=== PATIENT | female | born 1980 | race African-American/Black ===

== ENCOUNTER → 2016-08-29 | Outpatient (REF) | payer OTHER | LOC: M LAB REF 12:26 | PROVIDERS: ATTEND Internal Medicine Medical Oncology | DX: I81 Portal vein thrombosis (principal) ==

== ENCOUNTER → 2016-09-01 | Outpatient (CLI) | payer OTHER ==
--- NOTE | 2016-09-01 16:44 | REP ---
MRI study of the abdomen without and with IV gadolinium: History: History of portal vein thrombosis. Reassessment. Comparison MRI study 01/06/2015. Comparison CT examination 12/22/2014. Technique: Axial and coronal imaging planes utilized. T1 and T2-weighted scans include spin echo, turbo spin-echo, in and out of phase, and dynamically acquired sequential post gadolinium enhanced 2-D T1-weighted fat sat gradient echo images. Gadolinium enhancement dose is 22 ml of intravenous ProHance. MRI findings: No focal hepatic or splenic lesion is seen. There is no evidence of ascites. There is no evidence of hydronephrosis or renal mass or cyst on either side. No pancreatic lesion is seen. 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 No [place] portal vein is seen along the dorsal surface of the pancreas as before. The [place] portal vein cannot be resolved. I do not see a recannulated umbilical vein. In and out of phase images show no focal liver lesion. No gallbladder abnormality is seen. Dynamically acquired post gadolinium enhanced images show blood pool phase enhancement of the tangle of recannulated vessels in the jaswant apparatus. Postcontrast images show what appears to be a small 7 mm nonenhancing well-circumscribed lesion in the left lobe of the liver consistent with a cyst. This is unchanged from the 2014 prior study. There are some venous collaterals in the left mid abdomen at the inferior spleen tip to an adjacent to the left colon. These are also unchanged. 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 The [place] portal vein and [place] splenic vein cannot be seen. There are some venous collaterals in the left upper quadrant. No evidence of ascites. No renal abnormality noted. Signed by Jose De Jesus Perez MD 09/01/2016 05:04 P
== END ==
LOC: M RAD 14:15
PROVIDERS: ATTEND Internal Medicine Medical Oncology
DX: Z86.718 Personal history of other venous thrombosis and embolism (principal)
CPT/HCPCS: 74183; A9576

== ENCOUNTER 2016-09-07 17:30 | Emergency (ER) | payer OTHER ==
[2016-09-07 19:10] LABS: BASO % 0.2 % (0.0-1.0); EOS # 0.1 K/mm3 (0.0-0.50); EOS % 1.4 % (0.0-3.0); LARGE UNSTAINED CELL # 0.1 K/mm3 (0.0-0.4); LARGE UNSTAINED CELL % 1.1 % (0.0-4.0); LYMPH # 0.6 K/mm3 (1.5-4.5); LYMPH % 9.7 % (24.0-44.0); MEAN CORPUSCULAR HEMOGLOBIN 30.1 pg (27.0-33.0); MEAN CORPUSCULAR HGB CONC 32.4 g/dl (32.0-36.5); MONO # 0.2 K/mm3 (0.0-0.8); NEUTROPHILS # 4.7 K/mm3 (1.8-7.7); NEUTROPHILS % 84.6 % (36.0-66.0); PLATELET COUNT, AUTOMATED 186 k/mm3 (150-450); RED CELL DISTRIBUTION WIDTH 16.2 % (11.5-14.5); WHITE BLOOD COUNT 5.6 K/mm3 (4.0-10.0)
[2016-09-07] MEDS ORDERED: MORPHINE 4 MG/ML 1ML SYRINGE As Ordered ONE (19:28)
[2016-09-07] MEDS ORDERED: METOCLOPRAMIDE INJ 10MG/2ML VIAL (J2765) As Ordered ONE (19:28)
[2016-09-07 20:06] LABS: INR 0.96
[2016-09-07 20:19] LABS: ALBUMIN 3.6 GM/DL (3.2-5.2); ALBUMIN/GLOBULIN RATIO 0.78 (1.00-1.93); ALKALINE PHOSPHATASE 48 U/L (45-117); ALT/SGPT 20 U/L (12-78); AMYLASE 123 U/L (25-115); ANION GAP 9 MEQ/L (8-16); AST/SGOT 17 U/L (15-37); BILIRUBIN,DIRECT 0.1 MG/DL (0.0-0.2); BILIRUBIN,TOTAL 0.4 MG/DL (0.2-1.0); BLOOD UREA NITROGEN 12 MG/DL (7-18); CALCIUM LEVEL 8.6 MG/DL (8.5-10.1); CARBON DIOXIDE LEVEL 25 MEQ/L (21-32); CHLORIDE LEVEL 107 MEQ/L (98-107); CREATININE FOR GFR 0.87 MG/DL (0.55-1.02); GLOMERULAR FILTRATION RATE > 60.0 (>60); GLUCOSE, FASTING 84 MG/DL (70-105); SODIUM LEVEL 141 MEQ/L (136-145); TOTAL PROTEIN 8.2 GM/DL (6.4-8.2)
--- NOTE | 2016-09-07 21:38 | EDDOCDS ---
Physician Documentation [facility] Name: Rona Bah Age: 35 yrs Sex: Female : 1980 Arrival Date: 09/07/2016 Time: 17:30 Bed I5 / M5 Private MD: YU Calhoun Disposition: 09/07/16 21:21 Discharged to Home/Self Care. Impression: Nausea - likely viral illness, Diarrhea, unspecified. - Condition is Stable. - Discharge Instructions: Diarrhea, Nausea, Adult. - Prescriptions for ZOFRAN ODT 4 mg Oral - dissolve 1 tablet by ORAL route every 8 hours As needed do not chew, do not swallow whole; 10 tablet. - Medication Reconciliation, Local Pharmacy Hours form. - Follow up: YU Calhoun; When: Call to arrange an appointment; Reason: Recheck today's complaints. Follow up: Emergency Department; When: As needed; Reason: Fever > 102F, Worsening of conditions. - Problem is new. - Symptoms have improved. Historical: - Allergies: states in 2012 she had a "reaction" to dilaudid and oxycodone, but since has taken percocet without any problems; - Home Meds: 1. Iron CR 250 mg Oral cpER daily 2. multivitamin Oral cap daily 3. vit B12 monthly 4. vit d gummy daily 5. Xarelto 20 mg oral tab once daily - PMHx: blood clot to her liver; blood clot to right arm; left hip arhtritis; PE; Sleep Apnea w/o CPAP; - PSHx: gastric sleeve 2012; - Social history: Smoking status: Patient states was never smoker of tobacco. Patient uses marijuana, last used yesterday, No barriers to communication noted. - Family history: No immediate family members are acutely ill. - : The pt / caregiver states he / she is on anticoagulants: Xarelto Home medication list is obtained from the patient. - Exposure Risk Screening:: None identified. 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 0 in. (182.88 cm) (R); Pain 10/10; 20:00 Pain 6/10; dsf 20:12 BP 100 / 52; Pulse 54; Resp 18; Temp 99.7; Pulse Ox 100% ; Pain 6/10; ajs 21:26 BP 110 / 69; Pulse 60; Resp 18; Temp 99.5; Pulse Ox 98% ; Pain 4/10; ajs 17:33 Body Mass Index 31.19 (104.33 kg, 182.88 cm) gr2 MDM: 18:22 IV Saline Lock ordered. ar2 18:22 Undress patient appropriately for examination ordered. ar2 18:22 NS 0.9% 1000 ml IV at bolus once ordered. ar2 18:22 UCG by Nursing ordered. ar2 18:23 Amylase Ordered. EDMS 18:23 Basic Metabolic Profile Ordered. EDMS 18:23 CBC with Diff Ordered. EDMS 18:23 Lipase Ordered. EDMS 18:23 Liver Profile Ordered. EDMS 18:23 UA Ordered. EDMS 18:23 Pt & Aptt Ordered. EDMS 18:23 Lactic Acid (Arriaga tube on ice) Ordered. EDMS 18:24 NOTHING BY MOUTH+DIET ordered. EDMS 19:17 morphine 4 mg IVP once ordered. ar2 19:19 Metoclopramide 10 mg IV at 40 mg/hr once over 15 mins ordered. ar2 20:21 CBC with Diff Reviewed. ar2 20:21 UA Reviewed. ar2 20:21 Pt & Aptt Reviewed. ar2 20:21 Lactic Acid (Arriaga tube on ice) Reviewed. ar2 20:49 Amylase Reviewed. ar2 20:49 Liver Profile Reviewed. ar2 20:49 Basic Metabolic Profile Reviewed. ar2 20:49 Lipase Reviewed. ar2 20:55 Financial registration complete. gjb Point of Care Testing: Urine : 19:18 hCG Reading: Negative; Control Reading: Positive; ajs Ranges: Administered Medications: 19:15 Drug: NS 0.9% 1000 ml [sodium chloride 0.9 % injection solution] Route: IV; Rate: dsf bolus; Site: right wrist; 21:35 Follow up: IV Status: Completed infusion; IV Intake: 1000ml ld5 19:39 Drug: Metoclopramide 10 mg [metoclopramide 5 mg/mL injection solution] Route: IV; Rate: dsf 40 mg/hr; Infused Over: 15 mins; Site: right wrist; 20:10 Follow up: IV Status: Completed infusion; IV Intake: 10ml dsf 19:40 Drug: morphine 4 mg [morphine 4 mg/mL intravenous cartridge (1 mL)] Route: IVP; Site: dsf right wrist; 20:00 Follow up: Pain 01/20 Adult dsf Signatures: Dispatcher [employer] James Harrington PA-C PA-C ar2 Ana Paula Babcock RN RN ld5 Marcie Thorne RN RN allen Sol Lopez Desiree RN dsf [facility]
--- NOTE | 2016-09-07 21:38 | EDDOCDS ---
Nurse's Notes [facility] Name: Rona Bah Age: 35 yrs Sex: Female : 1980 Arrival Date: 09/07/2016 Time: 17:30 Bed I5 / M5 Private MD: YU Calhoun Diagnosis: Nausea-likely viral illness;Diarrhea, unspecified Presentation: 09/07 17:49 Presenting complaint: Patient states: dizzy and weak yesterday, woke up today with [facility] severe abdominal pain and pain into right flank and feeling like not wanting to move didn't even want to get up to use the bathroom. Acute neurological deficits are not present. Mechanism of Injury: No Mechanism of Injury. Adult Sepsis Screening: The patient does not have new or worsening altered mentation. Patient's respiratory rate is less than 22. Systolic blood pressure is greater than 100. Patient has a qSOFA score of 0- Negative Sepsis Screen. Suicide/Homicide risk assessment- the patient denies having any suicidal and/or homicidal ideations and does not present with any other emotional, behavioral or mental health complaints. Status: The patient is a dependent. Transition of care: patient was not received from another setting of care. 17:49 Acuity: JOSÉ MANUEL Level 3 [facility] 17:49 Method Of Arrival: Walkin/Carried/Asstd [facility] Triage Assessment: 17:51 General: Appears in no apparent distress, comfortable, Behavior is appropriate for age, [facility] cooperative. Pain: Location: back and abdomen Pain currently is 7 out of 10 on a pain scale. HIV screening NA for this visit Offered previously. GI: Reports diarrhea, nausea, Pain is 7 out of 10 on a pain scale. Musculoskeletal: Range of motion intact in all extremities. 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 Iron CR 250 mg Oral cpER daily 2. multivitamin Oral cap daily 3. vit B12 monthly 4. vit d gummy daily 5. Xarelto 20 mg oral tab once daily - PMHx: blood clot to her liver; blood clot to right arm; left hip arhtritis; PE; Sleep Apnea w/o CPAP; - PSHx: gastric sleeve 2013; - Social history: Smoking status: Patient states was never smoker of tobacco. Patient uses marijuana, last used yesterday, No barriers to communication noted. - Family history: No immediate family members are acutely ill. - : The pt / caregiver states he / she is on anticoagulants: Xarelto Home medication list is obtained from the patient. - Exposure Risk Screening:: None identified. Screenin:35 Screening information is obtained from the patient. Fall risk: No risks identified. ld5 Assistance ADL's: requires no assistance with activities of daily living. Abuse/DV Screen: The patient / caregiver reports he/she is: not in a situation that causes fear, pain or injury. Nutritional screening: No deficits noted. Advance Directives: There is no active DNR order. home support is adequate. Assessment: 18:51 General: Appears uncomfortable, Behavior is appropriate for age, cooperative. srm Neurological: No deficits noted. Respiratory: No deficits noted. GI: Reports cramping, lower abdominal pain. Derm: No deficits noted. 19:15 General: Appears in no apparent distress, uncomfortable, Behavior is appropriate for dsf age, cooperative. Pain: Location: right upper quadrant and left upper quadrant and back Pain currently is 7 out of 10 on a pain scale. Quality of pain is described as stabbing. Neurological: Level of Consciousness is awake, alert. Cardiovascular: Capillary refill < 3 seconds. Respiratory: Airway is patent Respiratory effort is even, unlabored, Respiratory pattern is regular, symmetrical. Derm: Skin is pink, warm & dry. 20:00 General: Appears in no apparent distress, Behavior is appropriate for age, cooperative. dsf Pain: Pain currently is 6 out of 10 on a pain scale. Neurological: Level of Consciousness is awake, alert. Cardiovascular: Capillary refill < 3 seconds. Respiratory: Airway is patent Respiratory effort is even, unlabored, Respiratory pattern is regular, symmetrical. Derm: Skin is pink, warm & dry. 20:48 General: Pt resting comfortably in bed. Fluids infusing. Will continue to monitor. ld5 21:35 General: Appears in no apparent distress, Behavior is cooperative, pleasant. General: ld5 Pt tolerated godfrey maricel well. Neurological: Level of Consciousness is awake, alert. Respiratory: Airway is patent Respiratory effort is even, unlabored. Vital Signs: 17:33 BP 122 / 56; Pulse 65; Resp 18 S; Temp 97.8(O); Pulse Ox 99% on R/A; Weight 104.33 kg gr2 (R); Height 6 ft. 0 in. (182.88 cm) (R); Pain 10/10; 20:00 Pain 6/10; dsf 20:12 BP 100 / 52; Pulse 54; Resp 18; Temp 99.7; Pulse Ox 100% ; Pain 6/10; ajs 21:26 BP 110 / 69; Pulse 60; Resp 18; Temp 99.5; Pulse Ox 98% ; Pain 4/10; ajs 17:33 Body Mass Index 31.19 (104.33 kg, 182.88 cm) gr2 Vitals: 17:33 Log In Time: September 07, 2016 at 17:33. gr2 ED Course: 17:32 Patient visited by Bay Hidalgo. gr2 17:32 [facility] [place] Private Physician. gr2 17:32 Patient moved to Waiting gr2 17:34 Patient visited by [place] H[place]go. gr2 17:34 Patient moved to Pre RCE gr2 17:51 Triage Initiated h 18:16 Patient moved to Triage 1 [facility] 18:17 James South PA-C is [facility]. ar2 18:17 Dawn Lynn MD is Attending Physician. ar2 18:17 Patient visited by James South PA-C. ar2 18:21 Patient moved to I5 / M5 [facility] 18:51 Missed attempts: 20 gauge in right wrist. srm 19:04 Inserted peripheral IV: 20gauge IV in right hand and blood collected. Patient tolerated ml6 the procedure well. Labs drawn. (by ED staff). Sent per order to lab. 19:16 Patient visited by Bea Enriquez,WENDY. dsf 19:18 Patient visited by Abeba Kerns. ajs 19:18 UA Sent. ajs 20:12 Patient visited by Abeba Kerns. ajs 20:33 Patient visited by Bea Enriquez,WENDY. dsf 20:49 Patient visited by Ana Paula Babcock,WENDY. ld5 21:21 [facility] [place]erral Physician. ar2 21:26 Patient visited by Abeba Kerns. ajs 21:35 The patient / caregiver is instructed regarding the plan of care and ED course. Patient ld5 has correct armband on for positive identification. 21:35 Discontinued lock intact, bleeding controlled, pressure dressing applied, No ld5 redness/swelling at site. No procedures done that require assistance. 21:37 Patient visited by Ana Paula Babcock RN. ld5 Administered Medications: 19:15 Drug: NS 0.9% 1000 ml [sodium chloride 0.9 % injection solution] Route: IV; Rate: dsf bolus; Site: right wrist; 21:35 Follow up: IV Status: Completed infusion; IV Intake: 1000ml ld5 19:39 Drug: Metoclopramide 10 mg [metoclopramide 5 mg/mL injection solution] Route: IV; Rate: dsf 40 mg/hr; Infused Over: 15 mins; Site: right wrist; 20:10 Follow up: IV Status: Completed infusion; IV Intake: 10ml dsf 19:40 Drug: morphine 4 mg [morphine 4 mg/mL intravenous cartridge (1 mL)] Route: IVP; Site: dsf right wrist; 20:00 Follow up: Pain 6/10 Adult dsf Point of Care Testing: Urine : 19:18 hCG Reading: Negative; Control Reading: Positive; ajs Ranges: Intake: 20:10 IV: 10.00ml; Total: 10.00ml. dsf 21:35 IV: 1000.00ml; Total: 1010.00ml. ld5 Order Results: Lab Order: Amylase; SPEC'M 09/07/16 19:47 Test: AMYLASE; Value: 123; Range: 25-115; Abnormal: Above high normal; Units: U/L; Status: F Lab Order: Basic Metabolic Profile; SPEC'M 09/07/16 19:47 Test: GLUCOSE, FASTING; Value: 84; Range: 70-105; Units: MG/DL; Status: F Test: BLOOD UREA NITROGEN; Value: 12; Range: 7-18; Units: MG/DL; Status: F Test: CREATININE FOR GFR; Value: 0.87; Range: 0.55-1.02; Units: MG/DL; Status: F Test: GLOMERULAR FILTRATION RATE; Value: > 60.0; Range: >60; Status: F Test: SODIUM LEVEL; Value: 141; Range: 136-145; Units: MEQ/L; Status: F Test: POTASSIUM SERUM; Value: 4.0; Range: 3.5-5.1; Units: MEQ/L; Status: F Test: CHLORIDE LEVEL; Value: 107; Range: 98-107; Units: MEQ/L; Status: F Test: CARBON DIOXIDE LEVEL; Value: 25; Range: 21-32; Units: MEQ/L; Status: F Test: ANION GAP; Value: 9; Range: 8-16; Units: MEQ/L; Status: F Test: CALCIUM LEVEL; Value: 8.6; Range: 8.5-10.1; Units: MG/DL; Status: F Test Note: ; Units are mL/min/1.73 m2 Chronic Kidney Disease Staging per NKF: Stage I & II GFR >=60 Normal to Mildly Decreased Stage III GFR 30-59 Moderately Decreased Stage IV GFR 15-29 Severely Decreased Stage V GFR <15 Very Little GFR Left ESRD GFR <15 on RUG SAMPLE BEVELER Lab Order: CBC with Diff; SPEC'M 09/07/16 19:01 Test: WHITE BLOOD COUNT; Value: 5.6; Range: 4.0-10.0; Units: K/mm3; Status: F Test: RED BLOOD COUNT; Value: 4.12; Range: 4.00-5.40; Units: M/mm3; Status: F Test: HEMOGLOBIN; Value: 12.4; Range: 12.0-16.0; Units: g/dl; Status: F Test: HEMATOCRIT; Value: 38.3; Range: 36.0-47.0; Units: %; Status: F Test: MEAN CORPUSCULAR VOLUME; Value: 93.0; Range: 80.0-96.0; Units: fl; Status: F Test: MEAN CORPUSCULAR HEMOGLOBIN; Value: 30.1; Range: 27.0-33.0; Units: pg; Status: F Test: MEAN CORPUSCULAR HGB CONC; Value: 32.4; Range: 32.0-36.5; Units: g/dl; Status: F Test: RED CELL DISTRIBUTION WIDTH; Value: 16.2; Range: 11.5-14.5; Abnormal: Above high normal; Units: %; Status: F Test: PLATELET COUNT, AUTOMATED; Value: 186; Range: 150-450; Units: k/mm3; Status: F Test: NEUTROPHILS %; Value: 84.6; Range: 36.0-66.0; Abnormal: Above high normal; Units: %; Status: F Test: LYMPH %; Value: 9.7; Range: 24.0-44.0; Abnormal: Below low normal; Units: %; Status: F Test: MONO %; Value: 3.0; Range: 0.0-5.0; Units: %; Status: F Test: EOS %; Value: 1.4; Range: 0.0-3.0; Units: %; Status: F Test: BASO %; Value: 0.2; Range: 0.0-1.0; Units: %; Status: F Test: LARGE UNSTAINED CELL %; Value: 1.1; Range: 0.0-4.0; Units: %; Status: F Test: NEUTROPHILS #; Value: 4.7; Range: 1.8-7.7; Units: K/mm3; Status: F Test: LYMPH #; Value: 0.6; Range: 1.5-4.5; Abnormal: Below low normal; Units: K/mm3; Status: F Test: MONO #; Value: 0.2; Range: 0.0-0.8; Units: K/mm3; Status: F Test: EOS #; Value: 0.1; Range: 0.0-0.50; Units: K/mm3; Status: F Test: BASO #; Value: 0.0; Range: 0.0-0.2; Units: K/mm3; Status: F Test: LARGE UNSTAINED CELL #; Value: 0.1; Range: 0.0-0.4; Units: K/mm3; Status: F Lab Order: Lipase; SPEC'M 09/07/16 19:47 Test: LIPASE; Value: 194; Range: 73-393; Units: U/L; Status: F Lab Order: Liver Profile; SPEC'M 09/07/16 19:47 Test: AST/SGOT; Value: 17; Range: 15-37; Units: U/L; Status: F Test: ALT/SGPT; Value: 20; Range: 12-78; Units: U/L; Status: F Test: ALKALINE PHOSPHATASE; Value: 48; Range: 45-117; Units: U/L; Status: F Test: BILIRUBIN,TOTAL; Value: 0.4; Range: 0.2-1.0; Units: MG/DL; Status: F Test: BILIRUBIN,DIRECT; Value: 0.1; Range: 0.0-0.2; Units: MG/DL; Status: F Test: TOTAL PROTEIN; Value: 8.2; Range: 6.4-8.2; Units: GM/DL; Status: F Test: ALBUMIN; Value: 3.6; Range: 3.2-5.2; Units: GM/DL; Status: F Test: ALBUMIN/GLOBULIN RATIO; Value: 0.78; Range: 1.00-1.93; Abnormal: Below low normal; Status: F Lab Order: UA; SPEC'M 09/07/16 19:12 Test: APPEARANCE, URINE; Value: CLEAR; Range: CLEAR; Status: F Test: COLOR, URINE; Value: YELLOW; Range: YELLOW; Status: F Test: PH,URINE; Value: 7.0; Range: 5.0-9.0; Units: UNITS; Status: F Test: SPECIFIC GRAVITY URINE AUTO; Value: 1.024; Range: 1.002-1.035; Status: F Test: PROTEIN, URINE AUTO; Value: NEGATIVE; Range: NEGATIVE; Units: mg/dL; Status: F Test: GLUCOSE, URINE (UA) AUTO; Value: NEGATIVE; Range: NEGATIVE; Units: mg/dL; Status: F Test: KETONE, URINE AUTO; Value: NEGATIVE; Range: NEGATIVE; Units: mg/dL; Status: F Test: UROBILINOGEN, URINE AUTO; Value: 0.2; Range: 0.0-2.0; Units: mg/dL; Status: F Test: BILIRUBIN, URINE AUTO; Value: NEGATIVE; Range: NEGATIVE; Status: F Test: NITRITE, URINE AUTO; Value: NEGATIVE; Range: NEGATIVE; Status: F Test: LEUKOCYTE ESTERASE, URINE AUTO; Value: NEGATIVE; Range: NEGATIVE; Status: F Test: BLOOD, URINE BLOOD; Value: NEGATIVE; Range: NEGATIVE; Status: F Test: WBC, URINE AUTO; Value: 0; Range: 0-3; Units: /HPF; Status: F Test: RBC, URINE AUTO; Value: 1; Range: 0-3; Units: /HPF; Status: F Test: BACTERIA, URINE AUTO; Value: NEGATIVE; Range: NEGATIVE; Status: F Test: SQUAMOUS EPITHELIAL CELL UR AU; Value: 0; Range: 0-6; Units: /HPF; Status: F Test: MUCUS, URINE; Value: SMALL; Range: NEGATIVE; Status: F Test: HYALINE CAST, URINE AUTO; Value: 0; Range: 0-1; Units: /LPF; Status: F Lab Order: Pt & Aptt; SPEC'M 09/07/16 19:47 Test: PROTHROMBIN TIME; Value: 12.9; Range: 12.3-14.5; Units: SECONDS; Status: F Test: INR; Value: 0.96; Status: F Test: PARTIAL THROMBOPLASTIN TIME; Value: 27.1; Range: 26.6-37.1; Units: SECONDS; Status: F Test Note: ; THERAPUTIC HUMAN INR VALUES INDICATIONS NORMAL RANGES PROPHYLAXIS/TREATMENT OF: VENOUS THROMBOSIS 2.0-3.0 PULMONARY EMBOLISM 2.0-3.0 PREVENTION OF SYSTEMIC EMBOLISM FROM: TISSUE HEART VALVES 2.0-3.0 ACUTE MYOCARDIAL INFARCTION 2.0-3.0 VALVULAR HEART DISEASE 2.0-3.0 ATRIAL FIBRILLATION 2.0-3.0 MECHANICAL VALVES(HIGH RISK) 2.5-3.5 RECURRENT MYOCARDIAL INFARCTION 2.5-3.5 Lab Order: Lactic Acid (Rariaga tube on ice); SPEC'M 09/07/16 19:01 Test: LACTIC ACID LEVEL, LACTATE; Value: 1.5; Range: 0.4-2.0; Units: MMOL/L; Status: F Outcome: 21:21 Discharge ordered by Provider. ar2 21:35 Discharge Assessment: Patient awake, alert and oriented x 3. No cognitive and/or ld5 functional deficits noted. Patient verbalized understanding of disposition instructions. patient administered narcotics - no. The following High Risk Discharge criteria are identified: None. Discharged to home ambulatory. Condition: stable. Discharge instructions given to patient, Instructed on discharge instructions, follow up and referral plans. medication usage, Demonstrated understanding of instructions, medications, Pt was receptive of discharge instructions/ teaching. Prescriptions given X 1. No special radiology studies were completed. Property :Personal belongings accompany Pt. 21:37 Patient left the ED. ld5 Signatures: Kimberli Jesus RN RN James Rogel PA-C PA-C ar2 Dedrick Washburn, RN RN ml6 Ana Paula Babcock,RN RN ld5 Bea Enriquez,RN RN ludinf Abeba Kerns JaneRN RN [facility] Bay Hidalgo 2 MTDFarhana
--- NOTE | 2016-09-09 22:38 | EDDOCDS ---
Physician Documentation [facility] Name: Rona Bah Age: 35 yrs Sex: Female : 1980 Arrival Date: 09/07/2016 Time: 17:30 Bed I5 / M5 Private MD: YU Calhoun Disposition: 09/07/16 21:21 Discharged to Home/Self Care. Impression: Nausea - likely viral illness, Diarrhea, unspecified. - Condition is Stable. - Discharge Instructions: Diarrhea, Nausea, Adult. - Prescriptions for ZOFRAN ODT 4 mg Oral - dissolve 1 tablet by ORAL route every 8 hours As needed do not chew, do not swallow whole; 10 tablet. - Medication Reconciliation, Local Pharmacy Hours form. - Follow up: YU Calhoun; When: Call to arrange an appointment; Reason: Recheck today's complaints. Follow up: Emergency Department; When: As needed; Reason: Fever > 102F, Worsening of conditions. - Problem is new. - Symptoms have improved. Historical: - Allergies: states in 2012 she had a "reaction" to dilaudid and oxycodone, but since has taken percocet without any problems; - Home Meds: 1. Iron CR 250 mg Oral cpER daily 2. multivitamin Oral cap daily 3. vit B12 monthly 4. vit d gummy daily 5. Xarelto 20 mg oral tab once daily - PMHx: blood clot to her liver; blood clot to right arm; left hip arhtritis; PE; Sleep Apnea w/o CPAP; - PSHx: gastric sleeve 2012; - Social history: Smoking status: Patient states was never smoker of tobacco. Patient uses marijuana, last used yesterday, No barriers to communication noted. - Family history: No immediate family members are acutely ill. - : The pt / caregiver states he / she is on anticoagulants: Xarelto Home medication list is obtained from the patient. - Exposure Risk Screening:: None identified. INFORMATION SYSTEMS CONSULTANT: 09/07 17:51 LMP 08/25/2016 [facility] Vital Signs: 17:33 BP 122 / 56; Pulse 65; Resp 18 S; Temp 97.8(O); Pulse Ox 99% on R/A; Weight 104.33 kg / gr2 230.01 lbs (R); Height 6 ft. 0 in. (182.88 cm) (R); Pain 10/10; 20:00 Pain 6/10; dsf 20:12 BP 100 / 52; Pulse 54; Resp 18; Temp 99.7; Pulse Ox 100% ; Pain 6/10; ajs 21:26 BP 110 / 69; Pulse 60; Resp 18; Temp 99.5; Pulse Ox 98% ; Pain 4/10; ajs 17:33 Body Mass Index 31.19 (104.33 kg, 182.88 cm) gr2 MDM: 18:22 IV Saline Lock ordered. ar2 18:22 Undress patient appropriately for examination ordered. ar2 18:22 NS 0.9% 1000 ml IV at bolus once ordered. ar2 18:22 UCG by Nursing ordered. ar2 18:23 Amylase Ordered. EDMS 18:23 Basic Metabolic Profile Ordered. EDMS 18:23 CBC with Diff Ordered. EDMS 18:23 Lipase Ordered. EDMS 18:23 Liver Profile Ordered. EDMS 18:23 UA Ordered. EDMS 18:23 Pt & Aptt Ordered. EDMS 18:23 Lactic Acid (Ariraga tube on ice) Ordered. EDMS 18:24 NOTHING BY MOUTH+DIET ordered. EDMS 19:17 morphine 4 mg IVP once ordered. ar2 19:19 Metoclopramide 10 mg IV at 40 mg/hr once over 15 mins ordered. ar2 20:21 CBC with Diff Reviewed. ar2 20:21 UA Reviewed. ar2 20:21 Pt & Aptt Reviewed. ar2 20:21 Lactic Acid (Arriaga tube on ice) Reviewed. ar2 20:49 Amylase Reviewed. ar2 20:49 Liver Profile Reviewed. ar2 20:49 Basic Metabolic Profile Reviewed. ar2 20:49 Lipase Reviewed. ar2 20:55 Financial registration complete. [facility] 21:57 [place] Payment Agreement was scanned into [employer] and attached to record. b 09/08 10:15 T-Sheet-- Draft Copy was scanned into [employer] and attached to record. Point of Care Testing: Urine : 09/07 19:18 hCG Reading: Negative; Control Reading: Positive; ajs Ranges: Administered Medications: 19:15 Drug: NS 0.9% 1000 ml [sodium chloride 0.9 % injection solution] Route: IV; Rate: dsf bolus; Site: right wrist; 21:35 Follow up: IV Status: Completed infusion; IV Intake: 1000ml ld5 19:39 Drug: Metoclopramide 10 mg [metoclopramide 5 mg/mL injection solution] Route: IV; Rate: dsf 40 mg/hr; Infused Over: 15 mins; Site: right wrist; 20:10 Follow up: IV Status: Completed infusion; IV Intake: 10ml dsf 19:40 Drug: morphine 4 mg [morphine 4 mg/mL intravenous cartridge (1 mL)] Route: IVP; Site: dsf right wrist; 20:00 Follow up: Pain 01/20 Adult dsf Signatures: Dispatcher [employer] EDMS Mamie Hurd, Reg Reg gb James South PA-C PA-C ar2 Ana Paula BabcockRN RN ld5 Marcie Thorne RN RN allen Sol Lopez Desiree RN dsf The chart was reviewed and I authenticate all verbal orders and agree with the evaluation and treatment provided.Attachments: 21:57 [facility] Payment Agreement gjb 09/08 10:15 T-Sheet-- Draft Copy Chart Complete MTDD
--- NOTE | 2016-09-09 22:38 | EDDOCDS ---
Physician Documentation [facility] Name: Rona Bah Age: 35 yrs Sex: Female : 1980 Arrival Date: 09/07/2016 Time: 17:30 Bed I5 / M5 Private MD: YU Calhoun Disposition: 09/07/16 21:21 Discharged to Home/Self Care. Impression: Nausea - likely viral illness, Diarrhea, unspecified. - Condition is Stable. - Discharge Instructions: Diarrhea, Nausea, Adult. - Prescriptions for ZOFRAN ODT 4 mg Oral - dissolve 1 tablet by ORAL route every 8 hours As needed do not chew, do not swallow whole; 10 tablet. - Medication Reconciliation, Local Pharmacy Hours form. - Follow up: YU Calhoun; When: Call to arrange an appointment; Reason: Recheck today's complaints. Follow up: Emergency Department; When: As needed; Reason: Fever > 102F, Worsening of conditions. - Problem is new. - Symptoms have improved. Historical: - Allergies: states in 2012 she had a "reaction" to dilaudid and oxycodone, but since has taken percocet without any problems; - Home Meds: 1. Iron CR 250 mg Oral cpER daily 2. multivitamin Oral cap daily 3. vit B12 monthly 4. vit d gummy daily 5. Xarelto 20 mg oral tab once daily - PMHx: blood clot to her liver; blood clot to right arm; left hip arhtritis; PE; Sleep Apnea w/o CPAP; - PSHx: gastric sleeve 2012; - Social history: Smoking status: Patient states was never smoker of tobacco. Patient uses marijuana, last used yesterday, No barriers to communication noted. - Family history: No immediate family members are acutely ill. - : The pt / caregiver states he / she is on anticoagulants: Xarelto Home medication list is obtained from the patient. - Exposure Risk Screening:: None identified. BRAZER FURNACE: 09/07 17:51 LMP 08/25/2016 [facility] Vital Signs: 17:33 BP 122 / 56; Pulse 65; Resp 18 S; Temp 97.8(O); Pulse Ox 99% on R/A; Weight 104.33 kg / gr2 230.01 lbs (R); Height 6 ft. 0 in. (182.88 cm) (R); Pain 10/10; 20:00 Pain 6/10; dsf 20:12 BP 100 / 52; Pulse 54; Resp 18; Temp 99.7; Pulse Ox 100% ; Pain 6/10; ajs 21:26 BP 110 / 69; Pulse 60; Resp 18; Temp 99.5; Pulse Ox 98% ; Pain 4/10; ajs 17:33 Body Mass Index 31.19 (104.33 kg, 182.88 cm) gr2 MDM: 18:22 IV Saline Lock ordered. ar2 18:22 Undress patient appropriately for examination ordered. ar2 18:22 NS 0.9% 1000 ml IV at bolus once ordered. ar2 18:22 UCG by Nursing ordered. ar2 18:23 Amylase Ordered. EDMS 18:23 Basic Metabolic Profile Ordered. EDMS 18:23 CBC with Diff Ordered. EDMS 18:23 Lipase Ordered. EDMS 18:23 Liver Profile Ordered. EDMS 18:23 UA Ordered. EDMS 18:23 Pt & Aptt Ordered. EDMS 18:23 Lactic Acid (Arriaga tube on ice) Ordered. EDMS 18:24 NOTHING BY MOUTH+DIET ordered. EDMS 19:17 morphine 4 mg IVP once ordered. ar2 19:19 Metoclopramide 10 mg IV at 40 mg/hr once over 15 mins ordered. ar2 20:21 CBC with Diff Reviewed. ar2 20:21 UA Reviewed. ar2 20:21 Pt & Aptt Reviewed. ar2 20:21 Lactic Acid (Arriaga tube on ice) Reviewed. ar2 20:49 Amylase Reviewed. ar2 20:49 Liver Profile Reviewed. ar2 20:49 Basic Metabolic Profile Reviewed. ar2 20:49 Lipase Reviewed. ar2 20:55 Financial registration complete. [facility] 21:57 [place] Payment Agreement was scanned into [employer] and attached to record. b 09/08 10:15 T-Sheet-- Draft Copy was scanned into [employer] and attached to record. Point of Care Testing: Urine : 09/07 19:18 hCG Reading: Negative; Control Reading: Positive; ajs Ranges: Administered Medications: 19:15 Drug: NS 0.9% 1000 ml [sodium chloride 0.9 % injection solution] Route: IV; Rate: dsf bolus; Site: right wrist; 21:35 Follow up: IV Status: Completed infusion; IV Intake: 1000ml ld5 19:39 Drug: Metoclopramide 10 mg [metoclopramide 5 mg/mL injection solution] Route: IV; Rate: dsf 40 mg/hr; Infused Over: 15 mins; Site: right wrist; 20:10 Follow up: IV Status: Completed infusion; IV Intake: 10ml dsf 19:40 Drug: morphine 4 mg [morphine 4 mg/mL intravenous cartridge (1 mL)] Route: IVP; Site: dsf right wrist; 20:00 Follow up: Pain 01/20 Adult dsf Signatures: Dispatcher [employer] EDMS Mamie Hurd, Reg Reg gb James South PA-C PA-C ar2 Ana Paula BabcockRN RN ld5 Marcie Thorne RN RN allen Sol Lopez Desiree RN dsf The chart was reviewed and I authenticate all verbal orders and agree with the evaluation and treatment provided.Attachments: 21:57 [facility] Payment Agreement gjb 09/08 10:15 T-Sheet-- Draft Copy Chart Complete MTDD
--- NOTE | 2016-09-09 22:38 | EDDOCDS ---
Nurse's Notes [facility] Name: Rona Bah Age: 35 yrs Sex: Female : 1980 Arrival Date: 09/07/2016 Time: 17:30 Bed I5 / M5 Private MD: YU Calhoun Diagnosis: Nausea-likely viral illness;Diarrhea, unspecified Presentation: 09/07 17:49 Presenting complaint: Patient states: dizzy and weak yesterday, woke up today with [facility] severe abdominal pain and pain into right flank and feeling like not wanting to move didn't even want to get up to use the bathroom. Acute neurological deficits are not present. Mechanism of Injury: No Mechanism of Injury. Adult Sepsis Screening: The patient does not have new or worsening altered mentation. Patient's respiratory rate is less than 22. Systolic blood pressure is greater than 100. Patient has a qSOFA score of 0- Negative Sepsis Screen. Suicide/Homicide risk assessment- the patient denies having any suicidal and/or homicidal ideations and does not present with any other emotional, behavioral or mental health complaints. Status: The patient is a dependent. Transition of care: patient was not received from another setting of care. 17:49 Acuity: JOSÉ MANUEL Level 3 [facility] 17:49 Method Of Arrival: Walkin/Carried/Asstd [facility] Triage Assessment: 17:51 General: Appears in no apparent distress, comfortable, Behavior is appropriate for age, [facility] cooperative. Pain: Location: back and abdomen Pain currently is 7 out of 10 on a pain scale. HIV screening NA for this visit Offered previously. GI: Reports diarrhea, nausea, Pain is 7 out of 10 on a pain scale. Musculoskeletal: Range of motion intact in all extremities. TAR ROOFER: 17:51 LMP 08/25/2016 [facility] Historical: - Allergies: states in 2012 she had a "reaction" to dilaudid and oxycodone, but since has taken percocet without any problems; - Home Meds: 1. Iron CR 250 mg Oral cpER daily 2. multivitamin Oral cap daily 3. vit B12 monthly 4. vit d gummy daily 5. Xarelto 20 mg oral tab once daily - PMHx: blood clot to her liver; blood clot to right arm; left hip arhtritis; PE; Sleep Apnea w/o CPAP; - PSHx: gastric sleeve 2013; - Social history: Smoking status: Patient states was never smoker of tobacco. Patient uses marijuana, last used yesterday, No barriers to communication noted. - Family history: No immediate family members are acutely ill. - : The pt / caregiver states he / she is on anticoagulants: Xarelto Home medication list is obtained from the patient. - Exposure Risk Screening:: None identified. Screenin:35 Screening information is obtained from the patient. Fall risk: No risks identified. ld5 Assistance ADL's: requires no assistance with activities of daily living. Abuse/DV Screen: The patient / caregiver reports he/she is: not in a situation that causes fear, pain or injury. Nutritional screening: No deficits noted. Advance Directives: There is no active DNR order. home support is adequate. Assessment: 18:51 General: Appears uncomfortable, Behavior is appropriate for age, cooperative. srm Neurological: No deficits noted. Respiratory: No deficits noted. GI: Reports cramping, lower abdominal pain. Derm: No deficits noted. 19:15 General: Appears in no apparent distress, uncomfortable, Behavior is appropriate for dsf age, cooperative. Pain: Location: right upper quadrant and left upper quadrant and back Pain currently is 7 out of 10 on a pain scale. Quality of pain is described as stabbing. Neurological: Level of Consciousness is awake, alert. Cardiovascular: Capillary refill < 3 seconds. Respiratory: Airway is patent Respiratory effort is even, unlabored, Respiratory pattern is regular, symmetrical. Derm: Skin is pink, warm & dry. 20:00 General: Appears in no apparent distress, Behavior is appropriate for age, cooperative. dsf Pain: Pain currently is 6 out of 10 on a pain scale. Neurological: Level of Consciousness is awake, alert. Cardiovascular: Capillary refill < 3 seconds. Respiratory: Airway is patent Respiratory effort is even, unlabored, Respiratory pattern is regular, symmetrical. Derm: Skin is pink, warm & dry. 20:48 General: Pt resting comfortably in bed. Fluids infusing. Will continue to monitor. ld5 21:35 General: Appears in no apparent distress, Behavior is cooperative, pleasant. General: ld5 Pt tolerated godfrey maricel well. Neurological: Level of Consciousness is awake, alert. Respiratory: Airway is patent Respiratory effort is even, unlabored. Vital Signs: 17:33 BP 122 / 56; Pulse 65; Resp 18 S; Temp 97.8(O); Pulse Ox 99% on R/A; Weight 104.33 kg gr2 (R); Height 6 ft. 0 in. (182.88 cm) (R); Pain 10/10; 20:00 Pain 6/10; dsf 20:12 BP 100 / 52; Pulse 54; Resp 18; Temp 99.7; Pulse Ox 100% ; Pain 6/10; ajs 21:26 BP 110 / 69; Pulse 60; Resp 18; Temp 99.5; Pulse Ox 98% ; Pain 4/10; ajs 17:33 Body Mass Index 31.19 (104.33 kg, 182.88 cm) gr2 Vitals: 17:33 Log In Time: September 07, 2016 at 17:33. gr2 ED Course: 17:32 Patient visited by Bay Hidalgo. gr2 17:32 [facility] [place] Private Physician. gr2 17:32 Patient moved to Waiting gr2 17:34 Patient visited by Bay Hidalgo. gr2 17:34 Patient moved to Pre RCE gr2 17:51 Triage Initiated h 18:16 Patient moved to Triage 1 [facility] 18:17 [facility] ar2 18:17 Dawn Lynn MD is Attending Physician. ar2 18:17 Patient visited by James South PA-C. ar2 18:21 Patient moved to I5 / M5 [facility] 18:51 Missed attempts: 20 gauge in right wrist. srm 19:04 Inserted peripheral IV: 20gauge IV in right hand and blood collected. Patient tolerated ml6 the procedure well. Labs drawn. (by ED staff). Sent per order to lab. 19:16 Patient visited by Bea Enriquez,WENDY. dsf 19:18 Patient visited by Abeba Kerns. ajs 19:18 UA Sent. ajs 20:12 Patient visited by Abeba Kerns. ajs 20:33 Patient visited by Bea Enriquez,WENDY. dsf 20:49 Patient visited by Ana Paula Babcock,WENDY. ld5 21:21 [facility] [place] Referral Physician. ar2 21:26 Patient visited by Abeba Kerns. ajs 21:35 The patient / caregiver is instructed regarding the plan of care and ED course. Patient ld5 has correct armband on for positive identification. 21:35 Discontinued lock intact, bleeding controlled, pressure dressing applied, No ld5 redness/swelling at site. No procedures done that require assistance. 21:37 Patient visited by Ana Paula Babcock RN. ld5 21:40 Patient name changed from Flosier\\S\\Channay\\S\\Olvin\\S\\ to Flosier\\S\\ \\S\\Olvin. EDMS 21:57 [place] Payment Agreement was scanned into [employer] and attached to record. gjb 09/08 10:15 T-Sheet-- Draft Copy was scanned into [employer] and attached to record. gb Administered Medications: 09/07 19:15 Drug: NS 0.9% 1000 ml [sodium chloride 0.9 % injection solution] Route: IV; Rate: dsf bolus; Site: right wrist; 21:35 Follow up: IV Status: Completed infusion; IV Intake: 1000ml ld5 19:39 Drug: Metoclopramide 10 mg [metoclopramide 5 mg/mL injection solution] Route: IV; Rate: dsf 40 mg/hr; Infused Over: 15 mins; Site: right wrist; 20:10 Follow up: IV Status: Completed infusion; IV Intake: 10ml dsf 19:40 Drug: morphine 4 mg [morphine 4 mg/mL intravenous cartridge (1 mL)] Route: IVP; Site: dsf right wrist; 20:00 Follow up: Pain 6/10 Adult dsf Point of Care Testing: Urine : 19:18 hCG Reading: Negative; Control Reading: Positive; ajs Ranges: Intake: 20:10 IV: 10.00ml; Total: 10.00ml. dsf 21:35 IV: 1000.00ml; Total: 1010.00ml. ld5 Order Results: Lab Order: Amylase; SPEC'M 09/07/16 19:47 Test: AMYLASE; Value: 123; Range: 25-115; Abnormal: Above high normal; Units: U/L; Status: F Lab Order: Basic Metabolic Profile; SPEC'M 09/07/16 19:47 Test: GLUCOSE, FASTING; Value: 84; Range: 70-105; Units: MG/DL; Status: F Test: BLOOD UREA NITROGEN; Value: 12; Range: 7-18; Units: MG/DL; Status: F Test: CREATININE FOR GFR; Value: 0.87; Range: 0.55-1.02; Units: MG/DL; Status: F Test: GLOMERULAR FILTRATION RATE; Value: > 60.0; Range: >60; Status: F Test: SODIUM LEVEL; Value: 141; Range: 136-145; Units: MEQ/L; Status: F Test: POTASSIUM SERUM; Value: 4.0; Range: 3.5-5.1; Units: MEQ/L; Status: F Test: CHLORIDE LEVEL; Value: 107; Range: 98-107; Units: MEQ/L; Status: F Test: CARBON DIOXIDE LEVEL; Value: 25; Range: 21-32; Units: MEQ/L; Status: F Test: ANION GAP; Value: 9; Range: 8-16; Units: MEQ/L; Status: F Test: CALCIUM LEVEL; Value: 8.6; Range: 8.5-10.1; Units: MG/DL; Status: F Test Note: ; Units are mL/min/1.73 m2 Chronic Kidney Disease Staging per NKF: Stage I & II GFR >=60 Normal to Mildly Decreased Stage III GFR 30-59 Moderately Decreased Stage IV GFR 15-29 Severely Decreased Stage V GFR <15 Very Little GFR Left ESRD GFR <15 on RAIL PROJECT ENGINEER Lab Order: CBC with Diff; SPEC'M 09/07/16 19:01 Test: WHITE BLOOD COUNT; Value: 5.6; Range: 4.0-10.0; Units: K/mm3; Status: F Test: RED BLOOD COUNT; Value: 4.12; Range: 4.00-5.40; Units: M/mm3; Status: F Test: HEMOGLOBIN; Value: 12.4; Range: 12.0-16.0; Units: g/dl; Status: F Test: HEMATOCRIT; Value: 38.3; Range: 36.0-47.0; Units: %; Status: F Test: MEAN CORPUSCULAR VOLUME; Value: 93.0; Range: 80.0-96.0; Units: fl; Status: F Test: MEAN CORPUSCULAR HEMOGLOBIN; Value: 30.1; Range: 27.0-33.0; Units: pg; Status: F Test: MEAN CORPUSCULAR HGB CONC; Value: 32.4; Range: 32.0-36.5; Units: g/dl; Status: F Test: RED CELL DISTRIBUTION WIDTH; Value: 16.2; Range: 11.5-14.5; Abnormal: Above high normal; Units: %; Status: F Test: PLATELET COUNT, AUTOMATED; Value: 186; Range: 150-450; Units: k/mm3; Status: F Test: NEUTROPHILS %; Value: 84.6; Range: 36.0-66.0; Abnormal: Above high normal; Units: %; Status: F Test: LYMPH %; Value: 9.7; Range: 24.0-44.0; Abnormal: Below low normal; Units: %; Status: F Test: MONO %; Value: 3.0; Range: 0.0-5.0; Units: %; Status: F Test: EOS %; Value: 1.4; Range: 0.0-3.0; Units: %; Status: F Test: BASO %; Value: 0.2; Range: 0.0-1.0; Units: %; Status: F Test: LARGE UNSTAINED CELL %; Value: 1.1; Range: 0.0-4.0; Units: %; Status: F Test: NEUTROPHILS #; Value: 4.7; Range: 1.8-7.7; Units: K/mm3; Status: F Test: LYMPH #; Value: 0.6; Range: 1.5-4.5; Abnormal: Below low normal; Units: K/mm3; Status: F Test: MONO #; Value: 0.2; Range: 0.0-0.8; Units: K/mm3; Status: F Test: EOS #; Value: 0.1; Range: 0.0-0.50; Units: K/mm3; Status: F Test: BASO #; Value: 0.0; Range: 0.0-0.2; Units: K/mm3; Status: F Test: LARGE UNSTAINED CELL #; Value: 0.1; Range: 0.0-0.4; Units: K/mm3; Status: F Lab Order: Lipase; SPEC'M 09/07/16 19:47 Test: LIPASE; Value: 194; Range: 73-393; Units: U/L; Status: F Lab Order: Liver Profile; SPEC'M 09/07/16 19:47 Test: AST/SGOT; Value: 17; Range: 15-37; Units: U/L; Status: F Test: ALT/SGPT; Value: 20; Range: 12-78; Units: U/L; Status: F Test: ALKALINE PHOSPHATASE; Value: 48; Range: 45-117; Units: U/L; Status: F Test: BILIRUBIN,TOTAL; Value: 0.4; Range: 0.2-1.0; Units: MG/DL; Status: F Test: BILIRUBIN,DIRECT; Value: 0.1; Range: 0.0-0.2; Units: MG/DL; Status: F Test: TOTAL PROTEIN; Value: 8.2; Range: 6.4-8.2; Units: GM/DL; Status: F Test: ALBUMIN; Value: 3.6; Range: 3.2-5.2; Units: GM/DL; Status: F Test: ALBUMIN/GLOBULIN RATIO; Value: 0.78; Range: 1.00-1.93; Abnormal: Below low normal; Status: F Lab Order: UA; SPEC'M 09/07/16 19:12 Test: APPEARANCE, URINE; Value: CLEAR; Range: CLEAR; Status: F Test: COLOR, URINE; Value: YELLOW; Range: YELLOW; Status: F Test: PH,URINE; Value: 7.0; Range: 5.0-9.0; Units: UNITS; Status: F Test: SPECIFIC GRAVITY URINE AUTO; Value: 1.024; Range: 1.002-1.035; Status: F Test: PROTEIN, URINE AUTO; Value: NEGATIVE; Range: NEGATIVE; Units: mg/dL; Status: F Test: GLUCOSE, URINE (UA) AUTO; Value: NEGATIVE; Range: NEGATIVE; Units: mg/dL; Status: F Test: KETONE, URINE AUTO; Value: NEGATIVE; Range: NEGATIVE; Units: mg/dL; Status: F Test: UROBILINOGEN, URINE AUTO; Value: 0.2; Range: 0.0-2.0; Units: mg/dL; Status: F Test: BILIRUBIN, URINE AUTO; Value: NEGATIVE; Range: NEGATIVE; Status: F Test: NITRITE, URINE AUTO; Value: NEGATIVE; Range: NEGATIVE; Status: F Test: LEUKOCYTE ESTERASE, URINE AUTO; Value: NEGATIVE; Range: NEGATIVE; Status: F Test: BLOOD, URINE BLOOD; Value: NEGATIVE; Range: NEGATIVE; Status: F Test: WBC, URINE AUTO; Value: 0; Range: 0-3; Units: /HPF; Status: F Test: RBC, URINE AUTO; Value: 1; Range: 0-3; Units: /HPF; Status: F Test: BACTERIA, URINE AUTO; Value: NEGATIVE; Range: NEGATIVE; Status: F Test: SQUAMOUS EPITHELIAL CELL UR AU; Value: 0; Range: 0-6; Units: /HPF; Status: F Test: MUCUS, URINE; Value: SMALL; Range: NEGATIVE; Status: F Test: HYALINE CAST, URINE AUTO; Value: 0; Range: 0-1; Units: /LPF; Status: F Lab Order: Pt & Aptt; SPEC'M 09/07/16 19:47 Test: PROTHROMBIN TIME; Value: 12.9; Range: 12.3-14.5; Units: SECONDS; Status: F Test: INR; Value: 0.96; Status: F Test: PARTIAL THROMBOPLASTIN TIME; Value: 27.1; Range: 26.6-37.1; Units: SECONDS; Status: F Test Note: ; THERAPUTIC HUMAN INR VALUES INDICATIONS NORMAL RANGES PROPHYLAXIS/TREATMENT OF: VENOUS THROMBOSIS 2.0-3.0 PULMONARY EMBOLISM 2.0-3.0 PREVENTION OF SYSTEMIC EMBOLISM FROM: TISSUE HEART VALVES 2.0-3.0 ACUTE MYOCARDIAL INFARCTION 2.0-3.0 VALVULAR HEART DISEASE 2.0-3.0 ATRIAL FIBRILLATION 2.0-3.0 MECHANICAL VALVES(HIGH RISK) 2.5-3.5 RECURRENT MYOCARDIAL INFARCTION 2.5-3.5 Lab Order: Lactic Acid (Arriaga tube on ice); SPEC'M 09/07/16 19:01 Test: LACTIC ACID LEVEL, LACTATE; Value: 1.5; Range: 0.4-2.0; Units: MMOL/L; Status: F Outcome: 21:21 Discharge ordered by Provider. ar2 21:35 Discharge Assessment: Patient awake, alert and oriented x 3. No cognitive and/or ld5 functional deficits noted. Patient verbalized understanding of disposition instructions. patient administered narcotics - no. The following High Risk Discharge criteria are identified: None. Discharged to home ambulatory. Condition: stable. Discharge instructions given to patient, Instructed on discharge instructions, follow up and referral plans. medication usage, Demonstrated understanding of instructions, medications, Pt was receptive of discharge instructions/ teaching. Prescriptions given X 1. No special radiology studies were completed. Property :Personal belongings accompany Pt. 21:37 Patient left the ED. ld5 Signatures: Dispatcher [employer] EDMS Kimberli Jesus, RN RN [facility] Mamie Hurd, Reg Reg James South PA-C PAKolby ar2 Dedrick Washburn RN RN ml6 Ana Paula Babcock RN RN ld5 Bea Enriquez,RN RN Abeba Tam Jane,RN RN allen Bay Hidalgo 2 Sol Lopez Chart Complete AYALA
== END 2016-09-07 21:37 | disposition home or self-care (01) ==
LOC: M ED 17:30
DX: B34.9 Viral infection, unspecified (principal); R11.0 Nausea; R19.7 Diarrhea, unspecified; Z86.718 Personal history of other venous thrombosis and embolism; M16.12 Unilateral primary osteoarthritis, left hip; Z86.711 Personal history of pulmonary embolism; G47.33 Obstructive sleep apnea (adult) (pediatric); Z79.01 Long term (current) use of anticoagulants; Z88.5 Allergy status to narcotic agent
CPT/HCPCS: 36415; 80048; 80076; 81001; 81025; 82150; 83605; 83690; 85025; 85610; 85730; 96361; 96365; 96375; 99284; J2765

== ENCOUNTER → 2016-11-01 | Outpatient (REF) ==
--- NOTE | 2016-11-01 15:18 | REP ---
Clinical: Bilaterally pain. Technique: AP view of the pelvis with neutral and frog lateral views of the left hip. Findings: Degenerative changes are suggested with increase sclerosis to the acetabular roof and associated joint space narrowing. No acute fracture dislocation. Impression: Mild degenerative changes out of proportion to patient's age. Signed by Peter Castanon MD 11/01/2016 03:10 P
== END ==
LOC: M SMT 14:32
PROVIDERS: ATTEND Internal Medicine
DX: Z02.1 Encounter for pre-employment examination (principal)

== ENCOUNTER → 2016-12-26 | Outpatient (CLI) | payer OTHER ==
--- NOTE | 2016-12-26 15:46 | REP ---
Clinical: Ovarian cyst. Technique: Transabdominal pelvic ultrasound followed by transvaginal examination for better evaluation of the endometrium and adnexa with color Doppler evaluation of the ovaries. Comparison: None. Findings: Bladder is partially distended measuring 6.9 x 6.1 x 3.0 cm. Anteverted subseptate uterus measures 7.6 x 3.3 x 5.1 cm. Endometrial complex measures 9 mm (right cornua) and 8 mm (left cornua). No significant uterine or endometrial abnormalities are otherwise noted. The bilateral ovaries are normal in vascularity without evidence for torsion. Right ovary measures 3.4 x 2.2 x 4.2 cm; RI equal 0.65 and includes 2.1 cm hemorrhagic follicle. Left ovary measures 2.9 x 2.1 x 3.6 cm; RI equal 0.28 and includes 1.6 cm hemorrhagic follicle. Trace free fluid in the pelvis likely physiologic. Impression: Ovaries demonstrate bilateral hemorrhagic cysts/follicles up to 2.1 cm. Suggestions for subseptate uterus otherwise normal in appearance. Signed by Peter Castanon MD 12/26/2016 03:37 P
== END ==
LOC: M RAD 14:58
PROVIDERS: ATTEND Physician Assistant
DX: N83.201 Unspecified ovarian cyst, right side (principal); N83.202 Unspecified ovarian cyst, left side

== ENCOUNTER 2017-02-21 20:28 | Emergency (ER) | payer OTHER ==
[~2017-02-21] VITALS: Ht 182.9 cm; Wt 103.5 kg
[2017-02-21] MEDS ORDERED: FOLI400T PO (20:47)
[2017-02-21] MEDS ORDERED: PRENTAB40 PO (20:47)
--- NOTE | 2017-02-21 22:09 | ECGEPIP ---
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
[2017-02-21] MEDS ORDERED: ONDANSETRON 4MG/2ML VIAL (J2405) IV ONE (23:00)
--- NOTE | 2017-02-22 00:20 | REPUSA ---
Clinical history: Pain. Findings: Real-time transabdominal ultrasound images of the pelvis were obtained. There is a single l kaushik intrauterine . The crown rump length measures 0.4 cm. heart rate measures 140 BPM. There is no evidence of a subchorionic hemorrhage. The uterus and ovaries are grossly unremarkable. There is no evidence of free fluid. Impression: 1. Single live intrauterine measuring 6 weeks, with estimated due date of 10/17/2017.
[2017-02-22 00:46] LABS: BASO % 0.5 % (0.0-1.0); EOS # 0.1 K/mm3 (0.0-0.50); EOS % 1.2 % (0.0-3.0); LARGE UNSTAINED CELL # 0.1 K/mm3 (0.0-0.4); LARGE UNSTAINED CELL % 2.2 % (0.0-4.0); LYMPH # 1.9 K/mm3 (1.5-4.5); LYMPH % 41.4 % (24.0-44.0); MEAN CORPUSCULAR HEMOGLOBIN 30.8 pg (27.0-33.0); MEAN CORPUSCULAR VOLUME 90.8 fl (80.0-96.0); MONO # 0.2 K/mm3 (0.0-0.8); MONO % 4.9 % (0.0-5.0); NEUTROPHILS # 2.3 K/mm3 (1.8-7.7); NEUTROPHILS % 49.9 % (36.0-66.0); PLATELET COUNT, AUTOMATED 200 k/mm3 (150-450); RED CELL DISTRIBUTION WIDTH 13.3 % (11.5-14.5); WHITE BLOOD COUNT 4.6 K/mm3 (4.0-10.0)
--- NOTE | 2017-02-22 00:50 | REPUSA ---
CLINICAL HISTORY: Pain. COMMENTS: PA and lateral views of chest reveal no evidence of active pleural or pulmonary parenchymal abnormali ty. The cardiac silhouette is within limits of normal. The mediastinum and pulmonary vessels appear n ormal. The bony structures are unremarkable. IMPRESSION: No evidence of acute pulmonary pathology.
[2017-02-22 01:08] LABS: ALBUMIN 3.5 GM/DL (3.2-5.2); ALBUMIN/GLOBULIN RATIO 0.71 (1.00-1.93); ALKALINE PHOSPHATASE 43 U/L (45-117); ALT/SGPT 16 U/L (12-78); ANION GAP 7 MEQ/L (8-16); AST/SGOT 16 U/L (15-37); BILIRUBIN,DIRECT 0.1 MG/DL (0.0-0.2); BILIRUBIN,TOTAL 0.6 MG/DL (0.2-1.0); BLOOD UREA NITROGEN 9 MG/DL (7-18); CALCIUM LEVEL 9.1 MG/DL (8.5-10.1); CARBON DIOXIDE LEVEL 23 MEQ/L (21-32); CHLORIDE LEVEL 106 MEQ/L (98-107); CREATININE FOR GFR 0.71 MG/DL (0.55-1.02); GLOMERULAR FILTRATION RATE > 60.0 (>60); GLUCOSE, FASTING 74 MG/DL (70-105); POTASSIUM SERUM 3.7 MEQ/L (3.5-5.1); SODIUM LEVEL 136 MEQ/L (136-145); TOTAL PROTEIN 8.4 GM/DL (6.4-8.2)
[2017-02-22] MEDS ORDERED: LOVE0.8I SC (04:06)
[2017-02-22] MEDS ORDERED: ENOXAPARIN 100MG/1ML SYRINGE (J1650) SC ONE (04:15)
[2017-02-22 04:20] VITALS: BP 110/58
== END 2017-02-22 04:49 | disposition home or self-care (01) ==
LOC: M ED 20:28
DX: O99.89 Other specified diseases and conditions complicating pregnancy, childbirth and the puerperium (principal); R07.89 Other chest pain; Z3A.01 Less than 8 weeks gestation of pregnancy
CPT/HCPCS: 36415; 71020; 76801; 80048; 80076; 83690; 84702; 85025; 85379; 93005; 93041; 96372; 96374; 99284; J1650; J2405

== ENCOUNTER → 2017-03-01 | Outpatient (CLI) | payer OTHER ==
[~2017-03-01] MED LIST: FOLI400T PO; LOVE0.8I SC; PRENTAB40 PO
[2017-03-01 18:39] LABS: BASO % 0.6 % (0.0-1.0); EOS % 0.8 % (0.0-3.0); LARGE UNSTAINED CELL # 0.1 K/mm3 (0.0-0.4); LARGE UNSTAINED CELL % 2.4 % (0.0-4.0); LYMPH # 1.3 K/mm3 (1.5-4.5); LYMPH % 35.7 % (24.0-44.0); MEAN CORPUSCULAR HEMOGLOBIN 31.1 pg (27.0-33.0); MEAN CORPUSCULAR HGB CONC 33.6 g/dl (32.0-36.5); MEAN CORPUSCULAR VOLUME 92.6 fl (80.0-96.0); MONO # 0.2 K/mm3 (0.0-0.8); NEUTROPHILS # 1.8 K/mm3 (1.8-7.7); NEUTROPHILS % 54.5 % (36.0-66.0); PLATELET COUNT, AUTOMATED 175 k/mm3 (150-450); RED CELL DISTRIBUTION WIDTH 13.6 % (11.5-14.5); WHITE BLOOD COUNT 3.4 K/mm3 (4.0-10.0)
[2017-03-02 09:08] LABS: HBsAg Prenatal NEGATIVE (NEGATIVE)
== END ==
LOC: M SMT 10:27
PROVIDERS: ATTEND Advanced Practice Midwife
DX: Z34.81 Encounter for supervision of other normal pregnancy, first trimester (principal)

== ENCOUNTER 2017-03-02 11:02 | Emergency (ER) | payer OTHER ==
[~2017-03-02] VITALS: Ht 182.9 cm; Wt 103.8 kg
[2017-03-02 11:51] LABS: BASO % 0.5 % (0.0-1.0); EOS % 1.2 % (0.0-3.0); LARGE UNSTAINED CELL # 0.1 K/mm3 (0.0-0.4); LARGE UNSTAINED CELL % 3.3 % (0.0-4.0); LYMPH # 1.7 K/mm3 (1.5-4.5); LYMPH % 41.9 % (24.0-44.0); MEAN CORPUSCULAR HEMOGLOBIN 31.6 pg (27.0-33.0); MEAN CORPUSCULAR HGB CONC 34.3 g/dl (32.0-36.5); MEAN CORPUSCULAR VOLUME 92.2 fl (80.0-96.0); MONO # 0.2 K/mm3 (0.0-0.8); MONO % 4.8 % (0.0-5.0); NEUTROPHILS % 48.3 % (36.0-66.0); PLATELET COUNT, AUTOMATED 186 k/mm3 (150-450); RED CELL DISTRIBUTION WIDTH 13.3 % (11.5-14.5); WHITE BLOOD COUNT 4.1 K/mm3 (4.0-10.0)
--- NOTE | 2017-03-02 12:08 | REP ---
First trimester obstetric ultrasound for vaginal bleeding, ER request: The study is performed with transabdominal ultrasound assessment: There is an intrauterine gestational sac with a pole. The heart rate is 140 beats per minute. The pole crown-rump length measures 0.9 cm, corresponding to 6 weeks 6 days gestational age. The FLORENCIO is 2017. There is no subchorionic hematoma. Maternal adnexa and cul-de-sac are unremarkable. There is a normal size yolk sac measuring 3 mm. Signed by Federico Jacobson MD 03/02/2017 12:00 P
[2017-03-02 12:17] VITALS: BP 117/57
== END 2017-03-02 12:22 | disposition home or self-care (01) ==
LOC: M ED 11:02
DX: O20.0 Threatened abortion (principal); O99.840 Bariatric surgery status complicating pregnancy, unspecified trimester; Z88.5 Allergy status to narcotic agent

== ENCOUNTER 2017-05-05 19:56 | Emergency (ER) | payer OTHER ==
[~2017-05-05] VITALS: Ht 182.9 cm; Wt 104.1 kg
--- NOTE | 2017-05-05 22:10 | REPUSA ---
OBSTETRICAL ULTRASOUND INDICATION: OB screening. Trauma. FINDINGS: A single live intrauterine gestation was identified with a heart rate of 158 bpm. The amniotic fluid index was within normal limits. The placenta was posterior, without evidence of place nta previa. The fetus was in a breech position. The cervix measures 3.4 cm in length and is closed. E stimated weight is 165 g. The majority of the anatomy was not well visualized because of the position. The cranium, choroid plexus, and cavum appear unremarkable. A normal cord insertion is seen, a three vessel umbil ical cord is noted. The kidneys, bladder, spine, and all four extremities appear within normal limits. BIOMETRIC MEASUREMENTS BPD 3.6 cm HC 12.8 cm AC 10.8 cm FL 2.2 cm IMPRESSION: 1. Single live fetus based on today's measurements at 16 weeks 5 days, with estimated due date 10/16/19 18. 2. Highly limited evaluation of the anatomy as described. A follow-up examination after 20 week s is recommended.
[2017-05-05 22:20] VITALS: BP 127/72
== END 2017-05-05 22:21 | disposition home or self-care (01) ==
LOC: M ED 19:56
DX: O9A.212 Injury, poisoning and certain other consequences of external causes complicating pregnancy, second trimester (principal); S60.512A Abrasion of left hand, initial encounter; S39.013A Strain of muscle, fascia and tendon of pelvis, initial encounter; Z3A.16 16 weeks gestation of pregnancy; W01.198A Fall on same level from slipping, tripping and stumbling with subsequent striking against other object, initial encounter; Y92.830 Public park as the place of occurrence of the external cause; Y93.02 Activity, running; Y99.9 Unspecified external cause status

== ENCOUNTER → 2017-05-18 | Outpatient (CLI) | payer OTHER ==
--- NOTE | 2017-05-19 14:09 | ECHO ---
DATE OF PROCEDURE: 05/18/2017 REFERRING PROVIDER: MARY Jimenez REASON FOR THE ECHOCARDIOGRAM: Heart murmur. 2D MEASUREMENT: IVS - 1.1 cm LV - 5.3 cm LVPW - 1.1 cm LA - 3.9 cm Aorta - 3.3 cm IVC - 1.32 cm DOPPLER MEASUREMENT: Peak velocity across the aortic valve - 1.4 m/s Peak velocity across the LVOT - 0.98 m/s Mitral E - 0.77, Mitral A - 0.62 with a ratio of 1.2 Maximum tricuspid valve velocity 2.5 m/s 2D COMMENTS: 1. Normal left ventricular size, wall thickness, and normal global left ventricular systolic function. The estimated left ventricular systolic ejection fraction is 60-65%. 2. Normal left atrium. The right atrium appears to be minimally enlarged on limited views. Normal right ventricle. 3. The atrial septum appear to be normal without evidence of defect or shunt. 4. Normal aortic root. 5. Trace pericardial effusion noted posteriorly at the base of the left ventricle, no evidence of cardiac tamponade. 6. Normal aortic valve, mitral valve, and tricuspid valve. The pulmonic valve appeared to be normal in limited views. The proximal pulmonary artery branches were not well visualized. 7. The inferior venal cava was normal in size, central venous pressure is most likely normal. DOPPLER: It detects mild mitral regurgitation, mild tricuspid regurgitation. The calculated pulmonary artery systolic pressure varied between 30-40 mmHg. Assessment of the left ventricular diastolic function appeared to be normal. IMPRESSION: 1. Normal global left ventricular systolic and diastolic function. 2. Mild mitral regurgitation. 3. Mild tricuspid regurgitation with mild pulmonary hypertension. 4. Trace pericardial effusion noted posteriorly at the base of the left ventricle, no evidence of cardiac tamponade. [facility]
== END ==
LOC: M CARPUL 09:59
PROVIDERS: ATTEND Physician Assistant
DX: R01.1 Cardiac murmur, unspecified (principal)

== ENCOUNTER → 2017-06-05 | Outpatient (CLI) | payer OTHER ==
[2017-06-05 12:49] LABS: MEAN CORPUSCULAR HEMOGLOBIN 30.7 pg (27.0-33.0); MEAN CORPUSCULAR HGB CONC 33.5 g/dl (32.0-36.5); MEAN CORPUSCULAR VOLUME 91.7 fl (80.0-96.0); PLATELET COUNT, AUTOMATED 140 10^3/uL (150-450); RED CELL DISTRIBUTION WIDTH 13.6 % (11.5-14.5)
[2017-06-05 13:28] LABS: ANION GAP 9 MEQ/L (8-16); BLOOD UREA NITROGEN 7 MG/DL (7-18); CALCIUM LEVEL 8.6 MG/DL (8.5-10.1); CARBON DIOXIDE LEVEL 25 MEQ/L (21-32); CHLORIDE LEVEL 105 MEQ/L (98-107); CREATININE FOR GFR 0.78 MG/DL (0.55-1.02); GLOMERULAR FILTRATION RATE > 60.0 (>60); GLUCOSE, FASTING 94 MG/DL (70-105); POTASSIUM SERUM 3.8 MEQ/L (3.5-5.1); SODIUM LEVEL 139 MEQ/L (136-145)
== END ==
LOC: M LAB 11:51
PROVIDERS: ATTEND Nurse Practitioner Family
DX: R01.1 Cardiac murmur, unspecified (principal); I26.99 Other pulmonary embolism without acute cor pulmonale; R00.2 Palpitations

== ENCOUNTER → 2017-06-22 | Outpatient (CLI) | payer OTHER ==
--- NOTE | 2017-06-22 14:56 | REP ---
OBSTETRIC SONOGRAPHY: HISTORY: Supervision of for anatomy. FINDINGS: Scanning through the gravid uterus demonstrates a viable single intrauterine gestation in a variable lie. motion is identified. heart rate is recorded at 156 beats per minute. A posterior grade 0 placenta is seen without evidence of previa or abruption. Amniotic fluid is subjectively normal. Closed cervical length is 4.3 cm. No extrauterine abnormalities observed. There has been appropriate interval growth. Umbilical cord is seen draping across the shoulders. No anomaly is seen. The following anatomic structures are identified and felt to be sonographically unremarkable: cranium, choroid plexus, cavum, cerebellum and posterior fossa, face and profile, lungs, four-chamber heart with left and right ventricular outflow tract views, diaphragm, left-sided stomach, abdominal wall cord insertion, three-vessel umbilical cord, kidneys and bladder, spine, upper and lower extremities. BIOMETRY CHART: BPD 5.7 cm = 23 weeks 3 days Head circumference 20.9 cm = 23 weeks 0 days Abdominal circumference 18.3 cm = 23 weeks 1 day Femur length 4.6 cm = 25 weeks 2 days Humeral length 4.2 cm = 25 weeks 2 days HC/AC ratio normal 1.14 Cephalic index normal 0.76 Estimated weight 643 grams, 1 pound 6 ounces, 65th percentile for 23 weeks 2 days. IMPRESSION: Viable single intrauterine gestation at 24 weeks 0 days by today's composite sonographic criteria. Expected gestational age estimate based on prior sonography is 23 weeks 2 days. FLORENCIO by prior sonography October 17, 2017. Signed by Jose De Jesus Perez MD 06/22/2017 04:50 P
== END ==
LOC: M RAD 12:15
PROVIDERS: ATTEND Obstetrics & Gynecology
DX: Z36.2 Encounter for other antenatal screening follow-up (principal)

== ENCOUNTER → 2017-07-12 | Outpatient (CLI) | payer OTHER ==
[2017-07-12 14:27] LABS: MEAN CORPUSCULAR HEMOGLOBIN 31.6 pg (27.0-33.0); MEAN CORPUSCULAR VOLUME 92.9 fl (80.0-96.0); PLATELET COUNT, AUTOMATED 147 10^3/uL (150-450); RED CELL DISTRIBUTION WIDTH 13.3 % (11.5-14.5); WHITE BLOOD COUNT 5.4 10^3/uL (4.0-10.0)
== END ==
LOC: M SMT 10:14
PROVIDERS: ATTEND Obstetrics & Gynecology
DX: O09.522 Supervision of elderly multigravida, second trimester (principal)

== ENCOUNTER 2017-07-20 06:51 | Emergency (ER) | payer OTHER ==
[~2017-07-20] VITALS: Ht 182.9 cm; Wt 115.4 kg
[2017-07-20] MEDS ORDERED: FERR1TAB8 (07:12)
--- NOTE | 2017-07-20 08:29 | REP ---
CT Head without contrast HISTORY: Headache COMPARISON: None There is no intraparenchymal hemorrhage, acute infarct, mass or midline shift. The ventricular system is normal in appearance. There is no extra cerebral collection. There is no fracture. The visualized sinuses are clear. IMPRESSION: There is no intracranial lesion. Signed by Manoj Styles MD 07/20/2017 08:21 A
[2017-07-20] MEDS ORDERED: NS 1,000 ML IV ONE (08:45)
[2017-07-20] MEDS ORDERED: PERCOCET 5MG/325MG TAB PO ONE (08:45)
[2017-07-20 10:58] VITALS: BP 121/57
== END 2017-07-20 11:00 | disposition home or self-care (01) ==
LOC: M ED 06:51
DX: R51 Headache (principal); Z86.711 Personal history of pulmonary embolism; Z86.718 Personal history of other venous thrombosis and embolism; Z79.899 Other long term (current) drug therapy; Z88.5 Allergy status to narcotic agent

== ENCOUNTER → 2017-08-15 | Outpatient (CLI) | payer OTHER | LOC: M RAD 12:30 | DX: O99.843 Bariatric surgery status complicating pregnancy, third trimester (principal); Z3A.31 31 weeks gestation of pregnancy | CPT/HCPCS: 76816 ==

== ENCOUNTER 2017-08-20 12:54 | Outpatient (CLI) | payer OTHER ==
[2017-08-20 14:46] LABS: AMORPHOUS SEDIMENT SMALL (NEGATIVE); APPEARANCE, URINE HAZY (CLEAR); BACTERIA, URINE AUTO NEGATIVE (NEGATIVE); BILIRUBIN, URINE AUTO NEGATIVE (NEGATIVE); BLOOD, URINE BLOOD NEGATIVE (NEGATIVE); COLOR, URINE YELLOW (YELLOW); GLUCOSE, URINE (UA) AUTO NEGATIVE (NEGATIVE); KETONE, URINE AUTO NEGATIVE (NEGATIVE); LEUKOCYTE ESTERASE, URINE AUTO NEGATIVE (NEGATIVE); MUCUS, URINE SMALL (NEGATIVE); NITRITE, URINE AUTO NEGATIVE (NEGATIVE); PROTEIN, URINE AUTO NEGATIVE (NEGATIVE); RBC, URINE AUTO 0 /HPF (0-3); SPECIFIC GRAVITY URINE AUTO 1.015 (1.002-1.035); SQUAMOUS EPITHELIAL CELL UR AU 0 /HPF (0-6); UROBILINOGEN, URINE AUTO 0.2 mg/dL (0.0-2.0); WBC, URINE AUTO 0 /HPF (0-3)
== END 2017-08-20 16:13 | disposition home or self-care (01) ==
LOC: M LDO 12:54
DX: O99.89 Other specified diseases and conditions complicating pregnancy, childbirth and the puerperium (principal); R10.9 Unspecified abdominal pain; Z3A.31 31 weeks gestation of pregnancy; Z79.899 Other long term (current) drug therapy; Z88.5 Allergy status to narcotic agent
CPT/HCPCS: 76775

== ENCOUNTER → 2017-09-12 | Outpatient (CLI) | payer OTHER | LOC: M RAD 14:37 | DX: O09.523 Supervision of elderly multigravida, third trimester (principal); Z36.89 Encounter for other specified antenatal screening; Z3A.33 33 weeks gestation of pregnancy | CPT/HCPCS: 76816 ==

== ENCOUNTER → 2017-09-19 | Outpatient (REF) | payer OTHER | LOC: M LAB REF 16:54 | DX: Z34.83 Encounter for supervision of other normal pregnancy, third trimester (principal) ==

== ENCOUNTER → 2017-10-03 | Outpatient (CLI) | payer OTHER ==
[2017-10-03 19:37] LABS: HEMATOCRIT 40.3 % (36.0-47.0); HEMOGLOBIN 13.7 g/dl (12.0-16.0); MEAN CORPUSCULAR HEMOGLOBIN 30.9 pg (27.0-33.0); PLATELET COUNT, AUTOMATED 168 10^3/uL (150-450); RED BLOOD COUNT 4.43 10^6/uL (4.00-5.40); RED CELL DISTRIBUTION WIDTH 13.3 % (11.5-14.5); WHITE BLOOD COUNT 5.2 10^3/uL (4.0-10.0)
[2017-10-03 19:58] LABS: INR 0.93; PROTHROMBIN TIME 12.5 SECONDS (12.4-14.5)
== END ==
LOC: M WUC 17:27
DX: O09.523 Supervision of elderly multigravida, third trimester (principal); Z3A.00 Weeks of gestation of pregnancy not specified
CPT/HCPCS: 85610

== ENCOUNTER 2017-10-12 10:10 | Emergency (ER) | payer OTHER | END 2017-10-12 10:22 | disposition admitted as inpatient to this hospital (09) | LOC: M ED 10:22 | DX: O47.1 False labor at or after 37 completed weeks of gestation (principal); O26.893 Other specified pregnancy related conditions, third trimester; M79.7 Fibromyalgia; M19.90 Unspecified osteoarthritis, unspecified site; Z86.711 Personal history of pulmonary embolism; Z88.5 Allergy status to narcotic agent; Z79.899 Other long term (current) drug therapy; Z79.01 Long term (current) use of anticoagulants; Z3A.39 39 weeks gestation of pregnancy | CPT/HCPCS: 99284 ==

== ENCOUNTER 2017-10-12 10:52 | Inpatient (IN) | payer OTHER ==
[2017-10-12 14:42] LABS: HEMATOCRIT 37.6 % (36.0-47.0); MEAN CORPUSCULAR HEMOGLOBIN 30.9 pg (27.0-33.0); MEAN CORPUSCULAR HGB CONC 34.6 g/dl (32.0-36.5); MEAN CORPUSCULAR VOLUME 89.3 fl (80.0-96.0); RED BLOOD COUNT 4.21 10^6/uL (4.00-5.40); RED CELL DISTRIBUTION WIDTH 13.4 % (11.5-14.5); WHITE BLOOD COUNT 5.4 10^3/uL (4.0-10.0)
[2017-10-12 15:01] LABS: FIBRINOGEN 511 MG/DL (221-452)
[2017-10-12 15:04] LABS: POS COUNT POS FLAG
[2017-10-12 15:06] LABS: PLATELET COUNT, AUTOMATED 132 10^3/uL (150-450)
[2017-10-12] MEDS: AMPICILLIN SOD 2 GM in APPROPRIATE DILUENT 20 ML IV (21:08)
[2017-10-12] MEDS: OXYTOCIN DRIP 30 UNITS in APPROPRIATE DILUENT 1 EA IV (21:08)
[2017-10-13] MEDS: AMPICILLIN SOD 1 GM in APPROPRIATE DILUENT 10 ML IV ×4 (01:12→13:32)
[2017-10-13] MEDS: LR 1,000 ML IV (13:07)
[2017-10-13] MEDS ORDERED: MEASLES,MUMPS,RUBELLA VACCINE INJ (MMR-II) (90707) SC (14:30)
[2017-10-13] MEDS ORDERED: DIBUCAINE 1% OINTMENT 30GM TOP (14:30)
[2017-10-13] MEDS ORDERED: RHOGAM 300 MCG (1500 IU) INJ (J2790) IM (14:30)
[2017-10-13] MEDS ORDERED: ANUSOL HC CREAM 30GM TOP (14:30)
[2017-10-13] MEDS ORDERED: ACETAMINOPHEN 500 MG TAB PO (14:30)
[2017-10-13] MEDS ORDERED: METHYLERGONOVINE MALEATE 0.2 MG TAB PO (14:30)
[2017-10-13] MEDS ORDERED: MOM 30ML SUSPENSION UDC PO (14:30)
[2017-10-13] MEDS ORDERED: DOCUSATE SODIUM 100 MG CAP PO (14:30)
[2017-10-13] MEDS: OXYTOCIN DRIP 30 UNITS in APPROPRIATE DILUENT 1 EA IV (14:45)
[2017-10-13] MEDS: LIDOCAINE 1% MDV INJ 50 ML VIAL SC (19:00)
[2017-10-13] MEDS: HEPARIN SOD (PORCINE) 5000 UNITS/ML VIAL SQ (21:37)
[2017-10-14] MEDS: PRENATAL VITAMINS CHEWABLE TABLET PO (09:16)
[2017-10-14] MEDS: HEPARIN SOD (PORCINE) 5000 UNITS/ML VIAL SQ ×2 (09:17→21:43)
[2017-10-15] MEDS: PRENATAL VITAMINS CHEWABLE TABLET PO (09:07)
[2017-10-15] MEDS: HEPARIN SOD (PORCINE) 5000 UNITS/ML VIAL SQ (09:07)
== END 2017-10-15 12:40 | disposition home or self-care (01) | DRG 560 ==
LOC: M LDO 10:52 → M OBS 10-13 16:18 → M LDI 19:40
PROVIDERS: Obstetrics & Gynecology
PROC: 10E0XZZ Delivery of Products of Conception, External Approach (ICD-10-PCS; principal; 2017-10-13)
PROC: 0KQM0ZZ Repair Perineum Muscle, Open Approach (ICD-10-PCS; 2017-10-13)
DX: O70.1 Second degree perineal laceration during delivery (principal); Z37.0 Single live birth; Z3A.39 39 weeks gestation of pregnancy; Z86.711 Personal history of pulmonary embolism; Z86.718 Personal history of other venous thrombosis and embolism; E28.2 Polycystic ovarian syndrome; O09.523 Supervision of elderly multigravida, third trimester

== ENCOUNTER → 2018-01-30 | Outpatient (REF) | payer OTHER ==
[2018-02-02 15:28] LABS: HPV HYBRID CAPTURE II Negative (Negative)
== END ==
LOC: M LAB REF 17:46
DX: Z12.4 Encounter for screening for malignant neoplasm of cervix (principal)
CPT/HCPCS: G0123

== ENCOUNTER 2018-02-08 16:44 | Emergency (ER) | payer OTHER, MEDICAID | END 2018-02-08 19:40 | disposition home or self-care (01) | LOC: M ED 16:44 | DX: M54.9 Dorsalgia, unspecified (principal); Z86.718 Personal history of other venous thrombosis and embolism; Z98.84 Bariatric surgery status; Z79.899 Other long term (current) drug therapy; Z88.5 Allergy status to narcotic agent | CPT/HCPCS: 71046 ==

== ENCOUNTER → 2018-06-10 | Outpatient (CLI) | payer OTHER, MEDICAID ==
[2018-06-10 11:19] LABS: BASO % 0.5 % (0.0-1.0); EOS % 0.8 % (0.0-3.0); HEMATOCRIT 35.7 % (36.0-47.0); HEMOGLOBIN 11.7 g/dl (12.0-15.5); IMMATURE GRANULOCYTE % 0.3 % (0-3.0); LYMPH # 1.3 10^3/uL (1.5-4.5); LYMPH % 34.4 % (24.0-44.0); MEAN CORPUSCULAR HEMOGLOBIN 29.3 pg (27.0-33.0); MEAN CORPUSCULAR HGB CONC 32.8 g/dl (32.0-36.5); MEAN CORPUSCULAR VOLUME 89.3 fl (80.0-96.0); MONO # 0.3 10^3/uL (0.0-0.8); MONO % 8.2 % (0.0-5.0); NEUTROPHILS # 2.1 10^3/uL (1.8-7.7); NEUTROPHILS % 55.8 % (36.0-66.0); PLATELET COUNT, AUTOMATED 143 10^3/uL (150-450); RED CELL DISTRIBUTION WIDTH 14.3 % (11.5-14.5); WHITE BLOOD COUNT 3.8 10^3/uL (4.0-10.0)
[2018-06-10 11:48] LABS: ALBUMIN 3.6 GM/DL (3.2-5.2); ALKALINE PHOSPHATASE 52 U/L (45-117); ALT/SGPT 19 U/L (12-78); ANION GAP 5 MEQ/L (8-16); AST/SGOT 20 U/L (7-37); BILIRUBIN,TOTAL 0.6 MG/DL (0.2-1.0); BLOOD UREA NITROGEN 11 MG/DL (7-18); CALCIUM LEVEL 8.9 MG/DL (8.5-10.1); CARBON DIOXIDE LEVEL 29 MEQ/L (21-32); CHLORIDE LEVEL 104 MEQ/L (98-107); CREATININE FOR GFR 0.93 MG/DL (0.55-1.30); FREE T4 0.94 NG/DL (0.76-1.46); GLOMERULAR FILTRATION RATE > 60.0 (>60); GLUCOSE, FASTING 94 MG/DL (70-100); SODIUM LEVEL 138 MEQ/L (136-145); TOTAL 25(OH) VITAMIN D 13.8 NG/ML (30.0-100.0); TOTAL PROTEIN 8.1 GM/DL (6.4-8.2)
[2018-06-10 14:11] LABS: REASON FOR REVIEW WBC/LEUKEMIA/BLAST; SLIDE REVIEW Report; SOURCE PERIPHERAL SMEAR
== END ==
LOC: M LAB 10:24
DX: D61.818 Other pancytopenia (principal); R53.83 Other fatigue; E66.01 Morbid (severe) obesity due to excess calories; Z79.01 Long term (current) use of anticoagulants; Z86.711 Personal history of pulmonary embolism
CPT/HCPCS: 84443

== ENCOUNTER → 2018-10-04 | Outpatient (CLI) | payer OTHER, MEDICAID ==
[~2018-10-04] MED LIST changes: +CYCL10TA PO; +ENOX100I3; +FERR1TAB8; +IBUP-1022 PO; +MAPA500T2 PO; +[UNRECOGNIZED DRUG - CODE] IV
[2018-10-04 12:58] LABS: BASO % 0.6 % (0.0-1.0); EOS % 0.6 % (0.0-3.0); HEMATOCRIT 37.6 % (36.0-47.0); HEMOGLOBIN 12.7 g/dl (12.0-15.5); LYMPH # 1.5 10^3/uL (1.5-4.5); LYMPH % 45.9 % (24.0-44.0); MEAN CORPUSCULAR HEMOGLOBIN 29.1 pg (27.0-33.0); MEAN CORPUSCULAR HGB CONC 33.8 g/dl (32.0-36.5); MEAN CORPUSCULAR VOLUME 86.2 fl (80.0-96.0); MONO # 0.2 10^3/uL (0.0-0.8); MONO % 6.9 % (0.0-5.0); NEUTROPHILS # 1.5 10^3/uL (1.8-7.7); PLATELET COUNT, AUTOMATED 158 10^3/uL (150-450); RED BLOOD COUNT 4.36 10^6/uL (4.00-5.40); WHITE BLOOD COUNT 3.2 10^3/uL (4.0-10.0)
[2018-10-04 13:45] LABS: ALBUMIN 3.6 GM/DL (3.2-5.2); ALT/SGPT 19 U/L (12-78); BILIRUBIN,TOTAL 0.6 MG/DL (0.2-1.0); BLOOD UREA NITROGEN 12 MG/DL (7-18); CALCIUM LEVEL 8.6 MG/DL (8.5-10.1); CARBON DIOXIDE LEVEL 27 MEQ/L (21-32); CHLORIDE LEVEL 105 MEQ/L (98-107); CREATININE FOR GFR 0.94 MG/DL (0.55-1.30); FREE T4 1.01 NG/DL (0.76-1.46); GLOMERULAR FILTRATION RATE > 60.0 (>60); GLUCOSE, FASTING 84 MG/DL (70-100); POTASSIUM SERUM 3.9 MEQ/L (3.5-5.1); SODIUM LEVEL 139 MEQ/L (136-145); TOTAL PROTEIN 8.8 GM/DL (6.4-8.2)
== END ==
LOC: M LAB 11:58
PROVIDERS: ATTEND Physician Assistant
DX: Z51.81 Encounter for therapeutic drug level monitoring (principal); E66.01 Morbid (severe) obesity due to excess calories; Z79.01 Long term (current) use of anticoagulants

== ENCOUNTER 2019-10-19 18:43 | Emergency (ER) | payer MEDICAID, OTHER ==
[~2019-10-19] VITALS: Ht 182.9 cm; Wt 108.6 kg
[2019-10-19] MEDS ORDERED: FOLI400T PO (18:52)
[2019-10-19] MEDS ORDERED: PREN29TA4 PO (18:52)
[2019-10-19] MEDS ORDERED: NS 1,000 ML IV ONE (19:45)
[2019-10-19] MEDS ORDERED: ONDANSETRON 4MG/2ML VIAL (J2405) IV ONE (19:45)
[2019-10-19 20:20] LABS: BASO % 0.4 % (0.0-1.0); EOS % 0.2 % (0.0-3.0); HEMATOCRIT 36.1 % (36.0-47.0); HEMOGLOBIN 11.9 g/dl (12.0-15.5); LYMPH # 1.2 10^3/uL (1.5-5.0); LYMPH % 21.4 % (24.0-44.0); MEAN CORPUSCULAR HEMOGLOBIN 28.5 pg (27.0-33.0); MEAN CORPUSCULAR VOLUME 86.4 fl (80.0-96.0); MONO # 0.5 10^3/uL (0.0-0.8); MONO % 8.6 % (0.0-5.0); NEUTROPHILS # 3.9 10^3/uL (1.5-8.5); NEUTROPHILS % 69.2 % (36.0-66.0); PLATELET COUNT, AUTOMATED 111 10^3/uL (150-450); RED BLOOD COUNT 4.18 10^6/uL (4.00-5.40); WHITE BLOOD COUNT 5.6 10^3/uL (4.0-10.0)
[2019-10-19 20:35] LABS: INR 1.18; PROTHROMBIN TIME 14.8 SECONDS (11.8-14.0)
[2019-10-19 20:36] LABS: PARTIAL THROMBOPLASTIN TIME 31.5 SECONDS (25.0-38.4)
[2019-10-19] MEDS ORDERED: ISOVUE-370 76% 100ML VIAL (Q9967) As Ordered ONE (20:38)
[2019-10-19 20:39] LABS: MONO SCRN NEGATIVE (NEGATIVE)
[2019-10-19 20:45] LABS: ALBUMIN 3.8 GM/DL (3.2-5.2); ALT/SGPT 15 U/L (12-78); BILIRUBIN,DIRECT 0.1 MG/DL (0.0-0.2); BILIRUBIN,TOTAL 0.4 MG/DL (0.2-1.0); LIPASE 178 U/L (73-393); MAGNESIUM LEVEL 1.7 MG/DL (1.8-2.4); TOTAL PROTEIN 8.7 GM/DL (6.4-8.2)
[2019-10-19 20:54] LABS: INFLUENZA A AMPLIFICATION NEGATIVE (NEGATIVE); INFLUENZA B AMPLIFICATION NEGATIVE (NEGATIVE)
--- NOTE | 2019-10-19 21:29 | REPVR ---
PROCEDURE INFORMATION: Exam: CT Abdomen And Pelvis With Contrast Exam date and time: 10/19/2019 8:36 PM Age: 38 years old Clinical indication: Abdominal pain; Localized; Lower; Additional info: Lower abd pain TECHNIQUE: Imaging protocol: Computed tomography of the abdomen and pelvis with intravenous contrast. Radiation optimization: All CT scans at this facility use at least one of these dose optimization techniques: automated exposure control; mA and/or kV adjustment per patient size (includes targeted exams where dose is matched to clinical indication); or iterative reconstruction. Contrast material: [id number]; Contrast volume: 100 ml; Contrast route: IV; COMPARISON: CT ABD PELVIS WITH CONTRAST 12/22/2014 4:29 PM FINDINGS: Liver: The liver attenuation is 71 Hounsfield units and the spleen is 103 Hounsfield units. Gallbladder and bile ducts: Normal. No calcified stones. No ductal dilation. Pancreas: Multiple portal venous collaterals filling the jaswant hepatis which is similar to the prior study and extends around the pancreatic head. Spleen: Normal. No splenomegaly. Adrenals: Normal. No mass. Kidneys and ureters: Minimal nonobstructing left renal calculus. Stomach and bowel: Status post gastric sleeve creation. Appendix: A normal appendix is seen. Intraperitoneal space: Minimal fluid in the cul-de-sac which is physiologic in amount. Vasculature: Unremarkable. No abdominal aortic aneurysm. Lymph nodes: Unremarkable. No enlarged lymph nodes. Bladder: Unremarkable as visualized. Reproductive: Unremarkable as visualized. Bones/joints: Unremarkable. No acute fracture. Soft tissues: Small fat filled umbilical hernia. IMPRESSION: 1. There has been little change from 12/22/2014. No acute interval process is identified. 2. Minimal nonobstructing left renal calculus. 3. Status post gastric sleeve. 4. Multiple portal venous collaterals within the jaswant hepatis and around the pancreatic head. Electronically signed by: Roosevelt Segal On 10/19/2019 21:28:46 PM
[2019-10-19] MEDS ORDERED: AMOX500C PO (21:41)
[2019-10-19] MEDS ORDERED: AMOXICILLIN 500 MG CAP PO ONE (21:45)
[2019-10-19 21:54] VITALS: BP 127/57
--- NOTE | 2019-10-20 20:32 | ECGEPIP ---
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
== END 2019-10-19 21:50 | disposition home or self-care (01) ==
LOC: M ED 18:43
DX: J02.0 Streptococcal pharyngitis (principal); E86.0 Dehydration; N20.0 Calculus of kidney; J44.9 Chronic obstructive pulmonary disease, unspecified; E28.2 Polycystic ovarian syndrome; Z86.718 Personal history of other venous thrombosis and embolism; Z98.84 Bariatric surgery status; Z79.899 Other long term (current) drug therapy; Z88.5 Allergy status to narcotic agent
CPT/HCPCS: 74177; 80047; 80076; 81001; 83690; 83735; 84702; 85025; 85610; 85730; 86308; 87502; 87880; 93005; 96361; 96374; 99284; J2405; Q9967

== ENCOUNTER → 2019-10-28 | Outpatient (CLI) | payer OTHER ==
[~2019-10-28] MED LIST changes: +AMOX500C PO; +PREN29TA4 PO
[2019-10-28 16:56] LABS: BASO % 0.5 % (0.0-1.0); EOS % 0.5 % (0.0-3.0); HEMATOCRIT 35.8 % (36.0-47.0); HEMOGLOBIN 11.7 g/dl (12.0-15.5); LYMPH # 1.7 10^3/uL (1.5-5.0); LYMPH % 41.2 % (24.0-44.0); MEAN CORPUSCULAR HEMOGLOBIN 28.6 pg (27.0-33.0); MEAN CORPUSCULAR HGB CONC 32.7 g/dl (32.0-36.5); MEAN CORPUSCULAR VOLUME 87.5 fl (80.0-96.0); MONO # 0.3 10^3/uL (0.0-0.8); MONO % 8.2 % (0.0-5.0); NEUTROPHILS # 2.1 10^3/uL (1.5-8.5); NEUTROPHILS % 49.4 % (36.0-66.0); PLATELET COUNT, AUTOMATED 183 10^3/uL (150-450); RED BLOOD COUNT 4.09 10^6/uL (4.00-5.40); WHITE BLOOD COUNT 4.2 10^3/uL (4.0-10.0)
[2019-10-28 17:06] LABS: COLLAGEN EPINEPHRINE 98 SECONDS (74-162)
[2019-10-28 17:24] LABS: BLOOD UREA NITROGEN 9 MG/DL (7-18); CALCIUM LEVEL 8.9 MG/DL (8.5-10.1); CARBON DIOXIDE LEVEL 28 MEQ/L (21-32); CHLORIDE LEVEL 109 MEQ/L (98-107); CREATININE FOR GFR 0.82 MG/DL (0.55-1.30); GLOMERULAR FILTRATION RATE > 60.0 (>60); GLUCOSE, FASTING 88 MG/DL (70-100); MAGNESIUM LEVEL 2.8 MG/DL (1.8-2.4); POTASSIUM SERUM 4.3 MEQ/L (3.5-5.1); SODIUM LEVEL 139 MEQ/L (136-145)
== END ==
LOC: M LAB 16:00
PROVIDERS: ATTEND Physician Assistant
DX: D69.6 Thrombocytopenia, unspecified (principal)

== ENCOUNTER → 2019-11-18 | Outpatient (REF) | payer OTHER | LOC: M LAB REF 16:43 | PROVIDERS: ATTEND Physician Assistant | DX: L05.91 Pilonidal cyst without abscess (principal) ==

== ENCOUNTER → 2019-12-03 | Outpatient (CLI) | payer OTHER ==
[~2019-12-03] MED LIST changes: +CYCL-707 PO; -CYCL10TA PO
--- NOTE | 2019-12-03 12:49 | REP ---
ULTRASOUND LEFT BREAST: Real-time sonographic evaluation of the left breast performed for a palpable lump in the region of 2-o'clock in the left breast 10 cm from the nipple. Reportedly this has been palpable for 2 weeks. At that location is a subcutaneous oval heterogeneous hyperechoic nodule measuring 10 x 5 x 10 mm. Given its hyperechoic echotexture, this could potentially represent a lipoma, but the findings are relatively nonspecific. IMPRESSION: At the site of the palpable lump is a superficial oval nodule 10 x 5 x 10 mm. Given its somewhat hyperechoic echotexture, this could represent a lipoma but the finding is nonspecific. Recommend either ultrasound guided biopsy or further evaluation with MRI.
== END ==
LOC: M WHC 07:16
PROVIDERS: ATTEND Family Medicine
DX: N63.21 Unspecified lump in the left breast, upper outer quadrant (principal)

== ENCOUNTER → 2019-12-15 | Outpatient (CLI) | payer OTHER | LOC: M PLALAB 11:53 | PROVIDERS: ATTEND Surgery | DX: Z13.9 Encounter for screening, unspecified (principal) ==

== ENCOUNTER → 2019-12-15 | Outpatient (REF) | payer OTHER ==
[2019-12-15 14:44] LABS: BLOOD UREA NITROGEN 11 MG/DL (7-18); CALCIUM LEVEL 8.8 MG/DL (8.5-10.1); CARBON DIOXIDE LEVEL 28 MEQ/L (21-32); CHLORIDE LEVEL 107 MEQ/L (98-107); CREATININE FOR GFR 0.84 MG/DL (0.55-1.30); GLOMERULAR FILTRATION RATE > 60.0 (>60); GLUCOSE, FASTING 77 MG/DL (70-100); POTASSIUM SERUM 3.9 MEQ/L (3.5-5.1); SODIUM LEVEL 139 MEQ/L (136-145)
== END ==
LOC: M PLALAB 11:52
PROVIDERS: ATTEND Surgery
DX: Z39.1 Encounter for care and examination of lactating mother (principal); N63.20 Unspecified lump in the left breast, unspecified quadrant

== ENCOUNTER → 2020-01-15 | Outpatient (CLI) | payer OTHER ==
[2020-01-15 10:36] LABS: BASO % 0.6 % (0.0-1.0); EOS % 1.1 % (0.0-3.0); HEMATOCRIT 34.5 % (36.0-47.0); HEMOGLOBIN 11.5 g/dl (12.0-15.5); LYMPH % 29.2 % (24.0-44.0); MEAN CORPUSCULAR HEMOGLOBIN 29.3 pg (27.0-33.0); MEAN CORPUSCULAR HGB CONC 33.3 g/dl (32.0-36.5); MONO # 0.2 10^3/uL (0.0-0.8); MONO % 6.8 % (0.0-5.0); NEUTROPHILS # 2.2 10^3/uL (1.5-8.5); PLATELET COUNT, AUTOMATED 130 10^3/uL (150-450); RED BLOOD COUNT 3.92 10^6/uL (4.00-5.40); WHITE BLOOD COUNT 3.5 10^3/uL (4.0-10.0)
[2020-01-15 10:59] LABS: ALBUMIN 3.3 GM/DL (3.2-5.2); ALT/SGPT 16 U/L (12-78); BILIRUBIN,DIRECT 0.2 MG/DL (0.0-0.2); BILIRUBIN,TOTAL 0.6 MG/DL (0.2-1.0); BLOOD UREA NITROGEN 8 MG/DL (7-18); CALCIUM LEVEL 8.7 MG/DL (8.5-10.1); CARBON DIOXIDE LEVEL 28 MEQ/L (21-32); CHLORIDE LEVEL 107 MEQ/L (98-107); CREATININE FOR GFR 0.83 MG/DL (0.55-1.30); GLOMERULAR FILTRATION RATE > 60.0 (>60); GLUCOSE, FASTING 89 MG/DL (70-100); LIPASE 226 U/L (73-393); POTASSIUM SERUM 3.6 MEQ/L (3.5-5.1); SODIUM LEVEL 142 MEQ/L (136-145); TOTAL PROTEIN 8.5 GM/DL (6.4-8.2)
== END ==
LOC: M LAB 09:36
PROVIDERS: ATTEND Physician Assistant
DX: R10.10 Upper abdominal pain, unspecified (principal)

== ENCOUNTER → 2020-01-27 | Outpatient (REF) | payer OTHER ==
[~2020-01-27] MED LIST changes: +ACET300T47 PO; +NAPR-837 PO; +SULF1TAB93 PO
== END ==
LOC: M LAB REF 16:57
PROVIDERS: ATTEND Physician Assistant
DX: L02.31 Cutaneous abscess of buttock (principal)

== ENCOUNTER 2020-01-28 14:35 | Emergency (ER) | payer OTHER ==
[~2020-01-28] VITALS: Ht 182.9 cm; Wt 100.9 kg
[~2020-01-28 14:35] MED LIST changes: -ACET300T47 PO; -NAPR-837 PO; -SULF1TAB93 PO
[2020-01-28] MEDS ORDERED: SULF1TAB93 PO (15:06)
[2020-01-28] MEDS ORDERED: ACET300T47 PO (15:06)
--- NOTE | 2020-01-28 15:42 | REP ---
Clinical: Left groin pain and swelling . Technique: Arriaga scale and color Doppler evaluation using linear high frequency transducer. Findings: Ultrasound examination of the left lower extremity deep venous structures from the common femoral vein to the popliteal vein demonstrates normal compressibility flow and wave patterns in response to respiration and augmentation. There is no evidence for deep venous thrombosis. No abnormal fluid collection to suggest abscess. Impression: No evidence for deep venous thrombosis. Electronically Signed by Peter Castanon MD 01/28/2020 03:33 P
--- NOTE | 2020-01-28 15:44 | REP ---
Clinical: Left groin pain and palpable mass. Technique: Real time maher scale and color evaluation using linear high frequency transducer. Findings: Directed ultrasound examination at the left groin demonstrates mild subcutaneous edema and few scattered lymph nodes measuring up to 12 x 7 x 13 mm. Point of maximal tenderness corresponds to a collateral vessel from the greater saphenous vein which appears patent and without thrombus. No abnormal fluid collection or abscess identified. Impression: Mild edema and few scattered lymph nodes. No evidence for thrombus or abscess. Electronically Signed by Peter Castanon MD 01/28/2020 03:35 P
[2020-01-28 16:18] LABS: BASO % 0.4 % (0.0-1.0); EOS # 0.1 10^3/uL (0.0-0.5); EOS % 1.2 % (0.0-3.0); HEMATOCRIT 35.8 % (36.0-47.0); HEMOGLOBIN 12.1 g/dl (12.0-15.5); LYMPH # 1.3 10^3/uL (1.5-5.0); LYMPH % 26.8 % (24.0-44.0); MEAN CORPUSCULAR HEMOGLOBIN 29.2 pg (27.0-33.0); MEAN CORPUSCULAR HGB CONC 33.8 g/dl (32.0-36.5); MEAN CORPUSCULAR VOLUME 86.3 fl (80.0-96.0); MONO # 0.4 10^3/uL (0.0-0.8); MONO % 7.4 % (0.0-5.0); NEUTROPHILS # 3.1 10^3/uL (1.5-8.5); PLATELET COUNT, AUTOMATED 182 10^3/uL (150-450); RED BLOOD COUNT 4.15 10^6/uL (4.00-5.40); WHITE BLOOD COUNT 4.9 10^3/uL (4.0-10.0)
[2020-01-28 16:42] LABS: ERYTHROCYTE SEDIMENTATION RATE 70 mm/hr (0-20)
[2020-01-28] MEDS ORDERED: ISOVUE-370 76% 100ML VIAL As Ordered ONE (19:01)
[2020-01-28 19:49] VITALS: BP 111/69
--- NOTE | 2020-01-28 19:55 | REPVR ---
PROCEDURE INFORMATION: Exam: CT Abdomen And Pelvis With Contrast Exam date and time: 01/28/2020 7:10 PM Age: 39 years old Clinical indication: Abdominal pain; Localized; Other: L groin; Additional info: L groin pain, pilondal cyst drained yest, concern for tracki TECHNIQUE: Imaging protocol: Computed tomography of the abdomen and pelvis with intravenous contrast. Radiation optimization: All CT scans at this facility use at least one of these dose optimization techniques: automated exposure control; mA and/or kV adjustment per patient size (includes targeted exams where dose is matched to clinical indication); or iterative reconstruction. Contrast material: ISOVUE 370; Contrast volume: 100 ml; Contrast route: INTRAVENOUS (IV); COMPARISON: CT ABD/PEL W/IV CONTRAST ONLY 10/19/2019 8:38 PM FINDINGS: Liver: Normal. No mass. Gallbladder and bile ducts: Seen as a separate structure. Pancreas: Normal. No ductal dilation. Spleen: Normal. No splenomegaly. Adrenals: Normal. No mass. Kidneys and ureters: Normal. No hydronephrosis. Stomach and bowel: Surgical clips noted within the stomach related to previous gastric bypass surgery. Appendix: No evidence of appendicitis. Intraperitoneal space: trace amount of free fluid in the pelvis. . No significant fluid collection. Vasculature: Filling defect noted within the right hepatic vein proximal to its insertion in the IVC. Main portal vein not clearly delineated. There are findings which suggest cavernous transformation of the portal vein. There is prominence of the mesenteric venous structures. Lymph nodes: Several enhancing lymph nodes noted adjacent to the left common femoral and superficial femoral vessels. Bladder: Unremarkable as visualized. Reproductive: Unremarkable as visualized. Bones/joints: Unremarkable. No acute fracture. Soft tissues: Umbilical hernia containing fat measuring 1.4 cm at its base with no signs of strangulation. Inflammatory changes noted within the subcutaneous fat of the left groin. No fluid collections seen in the pre or post sacral soft tissues IMPRESSION: 1. Inflammatory changes present within the left groin with several enlarged enhancing lymph nodes. The appearance suggests a localized lymphadenitis/cellulitis 2. Filling defect in the right hepatic vein may be related to inflow artifact of unopacified blood. Nonocclusive venous thrombosis is not excluded. 3. Cavernous transformation of main portal vein. Electronically signed by: Evelin Brewer On 01/28/2020 19:54:34 PM
--- NOTE | 2020-01-31 07:41 | ED PDOC ---
Post-Departure Follow-Up radiology preort faxed to Dawn Ojeda MD Jan 31, 2020 07:41
== END 2020-01-28 20:31 | disposition home or self-care (01) ==
LOC: M ED 14:35
DX: R59.0 Localized enlarged lymph nodes (principal); M54.9 Dorsalgia, unspecified; M51.26 Other intervertebral disc displacement, lumbar region; M19.90 Unspecified osteoarthritis, unspecified site; M79.7 Fibromyalgia; Z86.711 Personal history of pulmonary embolism; Z98.84 Bariatric surgery status; L05.91 Pilonidal cyst without abscess; Z79.899 Other long term (current) drug therapy; Z88.5 Allergy status to narcotic agent
CPT/HCPCS: 74177; 76882; 80047; 84702; 85025; 85652; 86140; 87040; 93971; 99283; Q9967

== ENCOUNTER 2020-05-04 02:24 | Emergency (ER) | payer OTHER ==
[~2020-05-04] VITALS: Ht 185.4 cm; Wt 94.4 kg
[~2020-05-04 02:24] MED LIST changes: +ACET300T47 PO; +SULF1TAB93 PO
[2020-05-04 02:25] VITALS: BP 117/75
[2020-05-04] MEDS ORDERED: NAPR-837 PO (03:27)
[2020-05-04] MEDS ORDERED: NAPROXEN 250 MG TAB PO ONE (03:30)
== END 2020-05-04 03:36 | disposition home or self-care (01) ==
LOC: M ED 02:24
DX: S49.91XA Unspecified injury of right shoulder and upper arm, initial encounter (principal); W01.0XXA Fall on same level from slipping, tripping and stumbling without subsequent striking against object, initial encounter; Y92.512 Supermarket, store or market as the place of occurrence of the external cause; Y93.9 Activity, unspecified; Y99.9 Unspecified external cause status; M19.90 Unspecified osteoarthritis, unspecified site; Z98.84 Bariatric surgery status; Z87.828 Personal history of other (healed) physical injury and trauma; Z79.899 Other long term (current) drug therapy; Z88.5 Allergy status to narcotic agent

== ENCOUNTER → 2020-06-29 | Outpatient (CLI) | payer OTHER ==
[~2020-06-29] MED LIST changes: +NAPR-837 PO
[2020-06-29 13:29] LABS: BASO % 0.6 % (0.0-1.0); EOS % 0.9 % (0.0-3.0); HEMATOCRIT 37.9 % (36.0-47.0); HEMOGLOBIN 12.2 g/dl (12.0-15.5); LYMPH # 1.8 10^3/uL (1.5-5.0); LYMPH % 51.6 % (24.0-44.0); MEAN CORPUSCULAR HEMOGLOBIN 29.2 pg (27.0-33.0); MEAN CORPUSCULAR HGB CONC 32.2 g/dl (32.0-36.5); MEAN CORPUSCULAR VOLUME 90.7 fl (80.0-96.0); MONO # 0.3 10^3/uL (0.0-0.8); MONO % 7.8 % (0.0-5.0); NEUTROPHILS # 1.4 10^3/uL (1.5-8.5); NEUTROPHILS % 38.8 % (36.0-66.0); PLATELET COUNT, AUTOMATED 165 10^3/uL (150-450); RED BLOOD COUNT 4.18 10^6/uL (4.00-5.40); WHITE BLOOD COUNT 3.5 10^3/uL (4.0-10.0)
[2020-06-29 14:13] LABS: ALBUMIN 3.6 GM/DL (3.2-5.2); ALT/SGPT 16 U/L (12-78); BILIRUBIN,TOTAL 0.6 MG/DL (0.2-1.0); BLOOD UREA NITROGEN 12 MG/DL (7-18); CALCIUM LEVEL 9.2 MG/DL (8.5-10.1); CARBON DIOXIDE LEVEL 28 MEQ/L (21-32); CHLORIDE LEVEL 107 MEQ/L (98-107); CREATININE FOR GFR 0.87 MG/DL (0.55-1.30); FERRITIN 7 NG/ML (8-252); FOLATE 11.7 NG/ML; FREE T4 0.97 NG/DL (0.76-1.46); GLOMERULAR FILTRATION RATE > 60.0 (>60); GLUCOSE, FASTING 74 MG/DL (70-100); IRON (FE) 67 UG/DL (50-170); PERCENT SATURATION 15.5 % (13.2-45.0); POTASSIUM SERUM 4.7 MEQ/L (3.5-5.1); SODIUM LEVEL 139 MEQ/L (136-145); TOTAL 25(OH) VITAMIN D 18.2 NG/ML (30.0-100.0); TOTAL IRON BINDING CAPACITY 433 UG/DL (250-450); TOTAL PROTEIN 8.5 GM/DL (6.4-8.2); VITAMIN B12 LEVEL 437 PG/ML
[2020-06-29 14:35] LABS: HEMOGLOBIN A1c 5.2 %
== END ==
LOC: M WUC 10:46
PROVIDERS: ATTEND Physician Assistant
DX: R11.0 Nausea (principal); R42 Dizziness and giddiness; Z98.84 Bariatric surgery status

== ENCOUNTER → 2020-08-04 | Outpatient (CLI) | payer OTHER ==
--- NOTE | 2020-08-04 11:23 | REPMRS ---
Patient History The patient states she had a clinical breast exam in 07/2020 Baseline Mammogram Patient had first child at age 37. Family history of breast cancer at age 56 in mother, breast cancer at age 50 or over in paternal aunt, breast cancer at age 61 in maternal uncle, breast cancer at age 51 in paternal grandmother, unknown cancer at age 50 or over in maternal grandmother, endometrial cancer at age 73 in paternal aunt, endometrial cancer at age 50 or over in paternal aunt, prostate cancer at age 54 in maternal uncle. 3D TOMOSYNTHESIS WAS PERFORMED. [employer] breast density b. Diagnostic Bilateral Mammo: August 04, 2020 - Exam #: [id number] Bilateral CC and MLO view(s) were taken. Technologist: Kandis Olson, Technologist FINDINGS: There are scattered fibroglandular densities. There has been no change in the appearance of the mammogram from the prior studies. There is a mild amount of residual fibroglandular tissue which is fairly symmetric. There is no interval development of dominant mass, architectural distortion, or clustered microcalcification suggestive of malignancy. Assessment: BI-RADS/ACR category 1 mammogram. Negative Mammogram. Recommendation Routine screening mammogram in 1 year (for women over age 40). This mammogram was interpreted with the aid of an FDA-approved computer-aided dectection system. THE LIFETIME RISK OF BREAST CANCER IS 39.2%, THEREFORE SUPPLEMENTAL SCREENING MRI OF THE BREASTS IS RECOMMENDED IN 6 MONTHS. Electronically Signed By: Federico Arriaga MD 08/04/20 [id number]
== END ==
LOC: M WHC 10:02
PROVIDERS: ATTEND Surgery
DX: N63.20 Unspecified lump in the left breast, unspecified quadrant (principal); Z91.89 Other specified personal risk factors, not elsewhere classified; Z80.3 Family history of malignant neoplasm of breast
CPT/HCPCS: 77066; G0279

== ENCOUNTER → 2020-12-03 | Outpatient (CLI) | payer OTHER ==
[~2020-12-03] MED LIST changes: -FOLI400T PO; +FOLI400T13 PO; +ISOVUE-300 61% 50ML VIAL As Ordered ONE; +LIDOCAINE 1% MDV 20ML VIAL As Ordered ONE; +TRIAMCINOLONE ACETONIDE SUSP 40 MG/ML VIAL (J3301) As Ordered ONE
--- NOTE | 2020-12-03 14:01 | REP ---
INDICATION: SUPERIOR GLENOID LABRUM RIGHT SHOULDER. COMPARISON: None TECHNIQUE: The procedure was performed by KRISTEL Hull, under the direct supervision of Dr. Perez. The benefits and risks of the procedure were explained to the patient, and an informed consent was obtained. Directly prior to the start of the procedure, a formal time-out was completed in the procedure room. The right glenohumeral joint space was localized using fluoroscopic guidance. The skin was prepped and draped in a sterile fashion. Approximately 5 mL of 1% Lidocaine 10 mg/ml was used as a local anesthetic. Using fluoroscopic guidance, a #22 gauge spinal needle was inserted and advanced into the right glenohumeral joint space. Approximately 1 mL of Isovue 300 was injected to verify placement. Six mL of a solution containing 5 mL 1% lidocaine 10 mg/ml and 1 mL Kenalog 40 milligrams/milliliter was injected into the joint space. The needle was removed and hemostasis was achieved. FINDINGS: The patient tolerated the procedure well and there were no immediate complications. IMPRESSION: 1. Fluoroscopic guided intra-articular right shoulder injection.. 0.2 minutes of fluoroscopy time was utilized for this procedure. Some fluoroscopic images are performed with last image hold technology. These images require no additional radiation. <Electronically signed by Sonali Denney > 12/03/20 123 <Electronically signed by Jimy Perez > 12/03/20 [id number]
== END ==
LOC: M RADPRO 10:37
PROVIDERS: ATTEND Orthopaedic Surgery
DX: S43.431D Superior glenoid labrum lesion of right shoulder, subsequent encounter (principal); X58.XXXD Exposure to other specified factors, subsequent encounter; Y93.9 Activity, unspecified; Y92.9 Unspecified place or not applicable; Y99.9 Unspecified external cause status
CPT/HCPCS: 20610; 77002; J3301; Q9967

== ENCOUNTER → 2020-12-07 | Outpatient (REF) | payer OTHER ==
[~2020-12-07] MED LIST changes: -ISOVUE-300 61% 50ML VIAL As Ordered ONE; -LIDOCAINE 1% MDV 20ML VIAL As Ordered ONE; -TRIAMCINOLONE ACETONIDE SUSP 40 MG/ML VIAL (J3301) As Ordered ONE
== END ==
LOC: M LAB REF 19:11
PROVIDERS: ATTEND Family Medicine
DX: J06.9 Acute upper respiratory infection, unspecified (principal)

== ENCOUNTER → 2020-12-22 | Outpatient (REF) | payer OTHER ==
[~2020-12-22] MED LIST changes: +BACTDSTA PO; -SULF1TAB93 PO
[2020-12-22 17:08] LABS: CHLAMYDIA DNA AMPLIFICATION NEGATIVE (NEGATIVE); GC DNA AMPLIFICATION NEGATIVE (NEGATIVE)
== END ==
LOC: M SFHCWAGY 12:57
PROVIDERS: ATTEND Obstetrics & Gynecology
DX: Z12.4 Encounter for screening for malignant neoplasm of cervix (principal); Z11.3 Encounter for screening for infections with a predominantly sexual mode of transmission
CPT/HCPCS: 87624; 87661; G0123; G0463